=== PATIENT | female | born 1935 | race African-American/Black ===

== ENCOUNTER 2017-04-11 08:20 | Outpatient (CLI) | payer MEDICARE, OTHER ==
[2017-04-11 13:50] LABS: BASOPHILS % (AUTO) 0.4 %; EOSINOPHILS # (AUTO) 0.1 10^3/uL (0.0-0.7); EOSINOPHILS % (AUTO) 1.4 %; HGB - HEMOGLOBIN 12.8 g/dL (12.0-16.0); LYMPHOCYTES # (AUTO) 0.9 10^3/uL (1.5-3.5); LYMPHOCYTES % (AUTO) 13.4 %; MEAN CORPUSCULAR HEMOGLOBIN 32.3 pg (27.0-31.0); MEAN CORPUSCULAR HGB CONC 34.6 g/dL (32.0-36.0); MEAN CORPUSCULAR VOLUME 93.4 fL (81.0-99.0); MEAN PLATELET VOLUME 8.1 fL (7.9-10.8); MONOCYTES # (AUTO) 0.7 10^3/uL (0.0-1.0); MONOCYTES % (AUTO) 10.2 %; NEUTROPHILS # (AUTO) 5.2 10^3/uL (1.5-6.6); NEUTROPHILS % (AUTO) 74.6 %; RED BLOOD COUNT 3.96 10^6/uL (4.20-5.40); RED CELL DISTRIBUTION WIDTH 13.9 % (12.0-15.0); UNCORRECTED WHITE BLOOD COUNT 6.9 x10^3/uL; WHITE BLOOD COUNT 6.9 x10^3/uL (4.8-10.8)
[2017-04-11 14:09] LABS: HEMOGLOBIN A1C 0.58 g/dL
[2017-04-11 14:11] LABS: ALBUMIN/GLOBULIN RATIO 1.1 (1.0-2.2); BILIRUBIN,TOTAL 0.7 mg/dL (0.2-1.0); BUN - BLOOD UREA NITROGEN 15 mg/dL (6-20); CALCIUM 9.3 mg/dL (8.5-10.3); CARBON DIOXIDE - CO2 28 mmol/L (21-32); CHLORIDE 100 mmol/L (101-111); CHOL/HDL RATIO 3.1 (<4.4); CHOLESTEROL 175 mg/dL; CREATININE 0.9 mg/dL (0.4-1.0); GFR - MDRD 73 (>89); GLUCOSE 110 mg/dL (70-100); HDL CHOLESTEROL 56 mg/dL; LDL/HDL RATIO 1.9 (<4.4); POTASSIUM 2.9 mmol/L (3.5-5.0); SODIUM 138 mmol/L (135-145); TOTAL PROTEIN 6.5 g/dL (6.7-8.2); TRIGLYCERIDES 66 mg/dL; VLDL CHOLESTEROL 13 mg/dL
== END 2017-04-11 08:21 | disposition home or self-care (01) ==
LOC: LAB.WCP 08:20
PROVIDERS: ATTEND Family Medicine
DX: C54.1 Malignant neoplasm of endometrium (principal); E11.9 Type 2 diabetes mellitus without complications; I10 Essential (primary) hypertension; E78.9 Disorder of lipoprotein metabolism, unspecified
CPT/HCPCS: 36415; 80053; 80061; 82043; 83036; 84443; 85025

== ENCOUNTER 2017-04-15 09:51 | Outpatient (CLI) | payer MEDICARE, OTHER ==
--- NOTE | 2017-04-18 16:15 | Mammography Report ---
DIGITAL SCREENING MAMMOGRAM: 04/15/2017 CLINICAL INDICATION: An 82-year-old, for screening. COMPARISON: 03/2016, 01/2015, 11/2013, 11/2012, 09/2011, 09/2010, 08/2009. TECHNIQUE: Routine CC and MLO projections were obtained of the breasts. FINDINGS: The breasts again demonstrate scattered fibroglandular densities bilaterally. Coarse and p unctate, typically benign calcifications are present. No suspicious masses, clustered microcalcificat ions, or regions of architectural distortion are identified. IMPRESSION: BENIGN FINDINGS. RECOMMENDATION: ROUTINE ANNUAL SCREENING UNLESS OTHERWISE CLINICALLY INDICATED. BIRADS CATEGORY 2-BENIGN FINDINGS. STANDARD QUALIFYING STATEMENTS 1. This examination was reviewed with the aid of Computer-Aided Detection (CAD). 2. A negative or benign imaging report should not delay biopsy if clinically suspicious findings are present. Consider surgical consultation if warranted. More than 5% of cancers are not identified by i maging. 3. Dense breasts may obscure an underlying neoplasm. JOB #: [id number] EXT JOB #:[id number]
== END 2017-04-15 09:52 | disposition home or self-care (01) ==
LOC: DI.N 09:51
PROVIDERS: ATTEND Family Medicine
DX: Z12.31 Encounter for screening mammogram for malignant neoplasm of breast (principal)
CPT/HCPCS: 77067

== ENCOUNTER 2018-02-13 06:13 | Day surgery (SDC) | payer MEDICARE, OTHER ==
[2018-02-13] MEDS ORDERED: LACTATED RINGERS 1,000 ML IV ONE ×2 (06:31→08:42)
[2018-02-13 10:05] VITALS: BP 114/64
== END 2018-02-13 06:14 | disposition home or self-care (01) ==
LOC: SDS 06:13
PROVIDERS: ATTEND Surgery
PROC: 0DBK8ZZ Excision of Ascending Colon, Via Natural or Artificial Opening Endoscopic (ICD-10-PCS; principal; 2018-02-13 07:30)
DX: C18.2 Malignant neoplasm of ascending colon (principal); K57.30 Diverticulosis of large intestine without perforation or abscess without bleeding; I10 Essential (primary) hypertension; K21.9 Gastro-esophageal reflux disease without esophagitis; G47.30 Sleep apnea, unspecified; K64.8 Other hemorrhoids
CPT/HCPCS: 45385; J7120

== ENCOUNTER 2018-02-23 09:44 | Outpatient (CLI) | payer MEDICARE, OTHER ==
[2018-02-23] MEDS ORDERED: IOPAMIDOL-300 50 ML VIAL ONE (10:11)
[2018-02-23 10:35] LABS: CREATININE 1.1 mg/dL (0.4-1.0)
[2018-02-23] MEDS ORDERED: IOPAMIDOL-300 100 ML VIAL ONE (10:50)
[2018-02-23] MEDS ORDERED: IOPAMIDOL-300 100 ML VIAL IVP ONE (11:19)
[2018-02-23] MEDS ORDERED: IOPAMIDOL-300 50 ML VIAL PO ONE (11:19)
--- NOTE | 2018-02-23 15:00 | CT Report ---
Reason: ADENOCARCINOMA,ASCENDING COLON Procedure Date: 02/23/2018 Accession Number: [id number] / [id number] Procedure: CT - Abdomen/Pelvis W/ CPT Code: FULL RESULT: EXAM: CT ABDOMEN AND PELVIS EXAM DATE: 02/23/2018 11:18 AM. CLINICAL HISTORY: Adenocarcinoma, ascending colon. COMPARISONS: Abdomen/pelvis w/ 01/22/2016 6:41 PM. TECHNIQUE: Routine helical CT imaging was performed through the abdomen and pelvis. IV contrast: Isovue 300 100 mL. Enteric contrast: No. Reconstructions: Coronal and sagittal. In accordance with CT protocol optimization, one or more of the following dose reduction techniques were utilized for this exam: automated exposure control, adjustment of mA and/or KV based on patient size, or use of iterative reconstructive technique. FINDINGS: Lung Bases: Unremarkable. Liver: Normal. No masses. Gallbladder/Bile Ducts: The gallbladder is unremarkable. No bile duct dilatation. Spleen: Normal. Pancreas: Normal. Adrenal Glands: Normal. Kidneys: Stable 1.8 cm cyst of the upper pole of the left kidney. The kidneys are otherwise unremarkable. Peritoneal Cavity/Bowel: Normal. No free fluid, free air or adenopathy. No masses or acute inflammatory process. The appendix is well visualized and normal. Pelvic Organs: The uterus has been removed. No pelvic mass, lymphadenopathy or fluid collections. Vasculature: No aneurysms or other significant abnormality. Bones: Grade 2 L4 on L5 anterolisthesis with associated disk-related degenerative changes again seen. No significant bony abnormalities otherwise seen. Other: None. IMPRESSION: No evidence of metastatic disease. RADIA
== END 2018-02-23 09:45 | disposition home or self-care (01) ==
LOC: DI 09:44
PROVIDERS: ATTEND Surgery
DX: C18.2 Malignant neoplasm of ascending colon (principal)
CPT/HCPCS: 36415; 74177; 82565; Q9967

== ENCOUNTER 2018-03-02 14:28 | Outpatient (CLI) | payer MEDICARE, OTHER | END 2018-03-02 14:29 | disposition home or self-care (01) | LOC: LAB 14:28 | PROVIDERS: ATTEND Surgery | DX: C18.2 Malignant neoplasm of ascending colon (principal) | CPT/HCPCS: 36415; 82378 ==

== ENCOUNTER 2018-03-22 11:10 | Outpatient (CLI) | payer MEDICARE, OTHER ==
[2018-03-22 11:35] LABS: BASOPHILS # (AUTO) 0.1 10^3/uL (0.0-0.1); BASOPHILS % (AUTO) 2.4 %; EOSINOPHILS # (AUTO) 0.1 10^3/uL (0.0-0.7); EOSINOPHILS % (AUTO) 1.6 %; HGB - HEMOGLOBIN 13.4 g/dL (12.0-16.0); LYMPHOCYTES # (AUTO) 0.9 10^3/uL (1.5-3.5); LYMPHOCYTES % (AUTO) 21.1 %; MEAN CORPUSCULAR HGB CONC 35.1 g/dL (32.0-36.0); MEAN CORPUSCULAR VOLUME 93.9 fL (81.0-99.0); MEAN PLATELET VOLUME 7.3 fL (7.9-10.8); MONOCYTES # (AUTO) 0.4 10^3/uL (0.0-1.0); MONOCYTES % (AUTO) 9.1 %; NEUTROPHILS # (AUTO) 2.9 10^3/uL (1.5-6.6); NEUTROPHILS % (AUTO) 65.8 %; PLT - PLATELET COUNT 249 10^3/uL (130-450); RED BLOOD COUNT 4.05 10^6/uL (4.20-5.40); RED CELL DISTRIBUTION WIDTH 14.2 % (12.0-15.0); WHITE BLOOD COUNT 4.4 x10^3/uL (4.8-10.8)
[2018-03-22 11:39] LABS: CALCIUM 9.3 mg/dL (8.5-10.3); CREATININE 0.8 mg/dL (0.4-1.0)
== END 2018-03-22 11:11 | disposition home or self-care (01) ==
LOC: LAB 11:10
PROVIDERS: ATTEND Registered Nurse
DX: Z01.810 Encounter for preprocedural cardiovascular examination (principal); C18.2 Malignant neoplasm of ascending colon; E11.9 Type 2 diabetes mellitus without complications; I10 Essential (primary) hypertension; K21.9 Gastro-esophageal reflux disease without esophagitis
CPT/HCPCS: 36415; 80048; 85025; 86850; 86900; 86901; 93005

== ENCOUNTER 2018-03-24 06:10 | Inpatient (IN) | payer MEDICARE, OTHER ==
[2018-03-24] MEDS ORDERED: LACTATED RINGERS 1,000 ML IV ONE ×3 (07:10→10:14)
--- NOTE | 2018-03-24 07:14 | ANESTHESIA ---
Pre-Anesthesia VS, & Labs - Diagnosis right colon cancer - Procedure Right colon hemicolectomy Vital Signs: Temp Pulse Resp BP Pulse Ox 36.2 C L 86 16 144/88 H 99 03/24/18 06:51 03/24/18 06:51 03/24/18 06:51 03/24/18 06:51 03/24/18 06:51 Height 5 ft 3 in Weight (kg) 62.3 kg Body Mass Index 21.4 - NPO >8 hours - Is Patient ?: No - Lab Results Current Lab Results: Laboratory Tests 03/24/18 07:08: POC Whole Bld Glucose 138 H Home Medications and Allergies Home Medications: Ambulatory Orders Aspirin [Aspirin EC] 81 mg PO DAILY 03/22/18 Cholecalciferol (Vitamin D3) [Vitamin D3] 1,000 unit PO DAILY 03/22/18 Cyanocobalamin (Vitamin B-12) [Vitamin B-12] 2,500 mcg PO DAILY 03/22/18 Ibuprofen 800 mg PO Q8HR PRN 03/22/18 Mirtazapine 15 mg PO DAILY PM 03/22/18 Potassium Chloride 10 meq PO DAILY 03/22/18 raNITIdine [Zantac] 150 mg PO DAILY 12/04/15 Tolterodine [Detrol LA] 2 mg PO BID 01/22/16 Triamterene/Hydrochlorothiazid [Triamterene-Hctz 37.5-25 mg Cp] 1 tab PO DAILY 02/13/18 Aspirin [Aspirin EC] 81 mg PO DAILY 03/22/18 Cholecalciferol (Vitamin D3) [Vitamin D3] 1,000 unit PO DAILY 03/22/18 Cyanocobalamin (Vitamin B-12) [Vitamin B-12] 2,500 mcg PO DAILY 03/22/18 Ibuprofen 800 mg PO Q8HR PRN 03/22/18 Mirtazapine 15 mg PO DAILY PM 03/22/18 Potassium Chloride 10 meq PO DAILY 03/22/18 Allergies/Adverse Reactions: Allergies Allergy/AdvReac Type Severity Reaction Status Date / Time No Known Drug Allergies Allergy Verified 12/04/15 07:50 Anes History & Medical History - Anesthetic History Anesthesia Complications: reports: No previous complications Family history of Anesthesia Complications: Denies Family history of Malignant Hyperthermia: Denies - Medical History Cardiovascular: reports: Hypertension, High cholesterol Pulmonary: reports: Sleep apnea Gastrointestinal: reports: GERD, Colon polyps, Diverticulitis Urinary: reports: Other Musculoskeletal: reports: Osteoarthritis, Chronic back pain Endocrine/Autoimmune: reports: Type 2 diabetes Smoking Status: Never smoker - Surgical History General: Colonoscopy Gynecologic: Hysterectomy Exam General: Alert, Oriented x3 Dental: Dentures full Upper Mouth Opening: Greater than 4 Fingerbreadths Neck Mobility: Normal Mallampati classification: II Thyromental Distance: greater than 6 cm Respiratory: Lungs clear Cardiovascular: Regular rate, Normal S1, Normal S2 Extremities: Other (edema on left leg chronic since hysterectomy) Plan Anesthesia Type: General Consent for Procedure(s) Verified and Reviewed: Yes Code Status: Attempt Resuscitation ASA classification: 3-Severe systemic disease Is this case an emergency?: No
[2018-03-24] MEDS ORDERED: LIDOCAINE 1% 50 ML MDV ONE (07:21)
[2018-03-24] MEDS ORDERED: BUPIVACAINE 0.5%-EPI 1:200000 PF 30 ML VIAL ONE (07:21)
[2018-03-24] MEDS ORDERED: BUPIVACAINE 0.5% PF 30 ML VIAL ONE (08:15)
[2018-03-24] MEDS ORDERED: ROCURONIUM 50 MG/5 ML VIAL IVP ONE (08:40)
[2018-03-24] MEDS ORDERED: DEXAMETHASONE 4 MG/ML VIAL IVP ONE (08:40)
[2018-03-24] MEDS ORDERED: ONDANSETRON 4 MG/2 ML VIAL IVP ONE (08:40)
[2018-03-24] MEDS ORDERED: LIDOCAINE-MPF 2% 5 ML VIAL IM ONE (08:40)
[2018-03-24] MEDS ORDERED: NEOSTIGMINE 1 MG/1 ML 10 ML MDV IVP ONE (08:40)
[2018-03-24] MEDS ORDERED: ePHEDrine 50 MG/ML AMP IVP ONE (08:40)
[2018-03-24] MEDS ORDERED: PROPOFOL 200 MG/20 ML VIAL IVP ONE (08:40)
[2018-03-24] MEDS ORDERED: fentaNYL 250 MCG/5 ML VIAL IVP ONE (08:40)
[2018-03-24] MEDS ORDERED: GLYCOPYRROLATE 1 MG/5 ML VIAL IVP ONE (08:40)
[2018-03-24] MEDS ORDERED: oxyCODONE 5 MG TABLET PO PRN (10:16)
[2018-03-24] MEDS ORDERED: MORPHINE 2 MG/ML CARPUJECT IVP PRN (10:16)
[2018-03-24] MEDS ORDERED: SODIUM CHLORIDE FLUSH 0.9% 10 ML SYRINGE IVP PRN (10:16)
[2018-03-24] MEDS: fentaNYL 100 MCG/2 ML VIAL ONE ×2 (10:35→10:42)
--- NOTE | 2018-03-24 10:54 | OPERATIVE REPORT ---
Operative Report - General Admit Date: 03/24/18 Procedure Date: 03/24/18 Planned Procedure: Laparoscopic RIGHT hemicolectomy Pre-Op Diagnosis: Ascending colon cancer Procedure Performed: Laparoscopic RIGHT hemicolectomy Post Op Diagnosis: Same - Procedure Note Primary Surgeon: Yonatan Hernandez MD Secondary Surgeon: Alfred Michaels MD Anesthesia Provider: Gold Miller CRNA Anesthesia Technique: General ET tube, Local (30 mL of half percent Marcaine) IV Fluids (mL): 1,300 Estimated Blood Loss (mL): 10 Complications: None. - Other Other Information/Narrative: OPERATIVE DESCRIPTION/REPORT: After verbal and written informed consent was obtained detailing the risks of infection, bleeding with all of its risks including transfusion, and the patient was brought to the operative suite and placed initially in the supine position on the operating room table and then once anesthetized in stirrups taking care to pad all extremities. Monitoring devices were applied along with TEDs and pneumatic compressive stockings. Care was taken to avoid pressure points. Prophylactic antibiotics were given. An adequate level of general endotracheal anesthesia was established by Gold Miller CRNA. The abdomen was then prepped with ChloraPrep and draped in a sterile fashion. A "time in" then confirmed that the patient was identified with 3 identifiers (name, date and medical record number), the history and physical was in the chart, the signed consent confirming the procedure was in the chart, the patient was in the correct position, the aforementioned prophylactic measures were in place or given, we had the correct personnel and equipment to complete the procedure and that anesthesia, surgery and nursing were given an opportunity to express any c oncerns. A 4 cm transverse incision was made just supraumbilically starting at the umbilicus and going to the patient's right. Dissection down to the anterior fascia was completed using a scalpel as well as Bovie electrocautery for hemostasis. The anterior fascia was incised using Bovie electrocautery and the rectus muscles were retracted laterally. The posterior fascia and the peritoneum were incised getting entry into the abdomen without incident. The incision was lengthened to the length of our skin incision. Through this opening was placed a SILS port and 3 ports were placed into the SILS gel. The abdomen was then insufflated using carbon dioxide to a steady-state pressure of 50 mmHg with carbon dioxide. The abdomen was then examined and no other overt pathology was noted. In order to complete the operation a 5 mm port was placed 2 fingerbreadths above and 2 fingerbreadths medial to the left anterior iliac spine. This is placed under direct vision without incident. The patient was then place in a rather steep Trendelenberg position with the left lateral decubitus tilt and a medial to lateral approach was employed. The interface of the mesentary and the retroperitoneum was opened using serial application of Ligasure. In so doing and with some traction and countertraction the ileocolic and right colic arteries and their corresponding veins came into view, as well as relatively avascular mesenteric windows, above and below the vessels. Both arteries were circumferentially isolated. The right ureter was seen and carefully preserved. These windows were used for retraction lifting the mesentary to the anterior abdominal wall so as to minimize trauma to the tissues. With the ileocolic artery and right colonic artery skeletonized and the right ureter clearly and safely away from the dissection the arteries and veins were ligated using Ligasure as close to their origin as possible to ensure that an adequate lymph node yield was achieved. The appendix as well as the terminal ileum were then freed from their lateral attachments using serial application of LigaSure. Dissection from inferior to superior along the white line of Toldt then allowed the colon to be freely mobilized all the way up to the hepatic flexure. The hepatic flexure was taken in a similar manner with using serial application of the LigaSure. At all times, care was taken to ensure the duodenum was visualized and unharmed. In this manner the right colon could be brought to the midline easily. Some minimal attachements of the omentum to the distal right colon and proximal transverse colon were taken using serial application of the Ligasure. With this final piece of mobilization I was convinced that the right colon could come medially and the transverese colon inferiorly to allow for resection and anastamosis at the skin level. Prestige grasper placed through one of the SILS ports. The insufflation was stopped and the SILS port removed leaving the sleeve in place. The Prestige grasper was then used to bring the right colon terminal ileum and proximal transverse colon up into the wound. Two 3-0 Vicryl sutures were used to align the ileum to the mid transverse colon using the antimesenteric border of the ileum and one of the tenia. Bowel clamps were placed on the terminal ileum as well as the proximal transverse colon to minimize spillage. A small colotomy and enterotomy was then made using Bovie electrocautery just above the distal ileal suture and proximal to the mid colonic suture to allow placement of a ANDERSON 75 stapler. The stapler was placed through these openings and fired thus creating the colocolostomy. The ANDERSON stapler was reloaded and the fired across the ileum and colon thus resecting the terminal ileum, appendix, right colon and proximal hepatic flexure and completing the anastomosis. The specimen was sent off the operative field. It did not require orientation. Digital manipulation showed that the anastomosis was widely patent. This staple line was then oversewn using 3-0 Vicryl sutures in a Lembert fashion. The anastamosis was visually checked fort a leak and there was none. There was no bleeding noted. The anastomosis was then dropped into the abdomen and the abdomen was copiously irrigated using 1 L warm sterile saline. The effluent was clear. The posterior fascia and peritoneum at the umbilicus were approximated using a 0 Vicryl suture in a running fashion. The anterior fascia was approximated using 0 PDS in a running fashion. The port site as well as umbilical incision were injected with half percent Marcaine at a fascial and skin level with 1/2% Marcaine under direct vision. Meticulous hemostasis was obtained using Bovie electrocautery. The skin incisions were approximated with a running 4-0 Monocryl. Dermabond was applied above this. At this point a time out was performed that confirmed that all the counts were correct, the procedure that was performed, the blood loss, the IV fluids administered, and the patients condition. The prep was washed off and Benzoin and steristrips were applied. Having tolerated the procedure well, the patient was subsequently extubated and taken to recovery room in good and stable condition. [employer] disclaimer: This document was created in part using voice recognition technology. Because of the inherent limitations of the system ([employer]s [employer] user manual states that the licensee understands that speech recognition is a statistical process and that recognition errors are inherent in the process), occasional same sounding word substitutions and grammatical errors do occur and persist despite proofreading. Please read this document for context.
[2018-03-24] MEDS: LACTATED RINGERS 1,000 ML IV SCH (11:19)
[2018-03-24] MEDS: ACETAMINOPHEN 1,000 MG/100 ML 100 ML IV SCH ×3 (12:02→23:36)
[2018-03-24] MEDS ORDERED: PIPERACILLIN/TAZOBACTAM 3.375 GM in SODIUM CHLORIDE 0.9% MINIBAG 100 ML IV ONE (14:00)
[2018-03-24] MEDS ORDERED: SODIUM CHLORIDE 0.9% 1,000 ML IV ONE (16:00)
[2018-03-24] MEDS: SODIUM CHLORIDE FLUSH 0.9% 10 ML SYRINGE IVP SCH (17:04)
[2018-03-25] MEDS: SODIUM CHLORIDE FLUSH 0.9% 10 ML SYRINGE IVP SCH ×3 (00:29→16:05)
[2018-03-25] MEDS: LACTATED RINGERS 1,000 ML IV SCH ×2 (04:58→23:47)
[2018-03-25] MEDS: ACETAMINOPHEN 1,000 MG/100 ML 100 ML IV SCH ×3 (06:12→19:04)
[2018-03-25] MEDS: PANTOPRAZOLE 40 MG TABLET PO SCH (06:13)
--- NOTE | 2018-03-25 14:15 | PROVIDER PROGRESS NOTE ---
Subjective - General Admit Date: 03/24/18 Procedure Date: 03/24/18 Post Op Days: 1 Procedure Performed: Laparoscopic RIGHT hemicolectomy - Review of Systems Wound/Incisions: positive: Healing well General: positive: No symptoms HEENT: positive: No symptoms Pulmonary: positive: No symptoms Cardiovascular: positive: No symptoms Gastrointestinal: positive: Abdominal pain (Slight with eating breakfast.) Genitourinary: positive: No symptoms Musculoskeletal: positive: No symptoms Skin: positive: No symptoms Psychiatric: positive: No symptoms Objective - Patient Data Reviewed Vital Signs: Yes Vital Signs: Vital Signs x48h Temp Pulse Pulse Resp BP Pulse Ox 03/25/18 09:46 36.8 C 61 18 100 03/25/18 08:27 36.8 C 57 L 18 110/56 L 100 Weight: Weight 03/23/18 03/24/18 03/25/18 23:59 23:59 23:59 Weight (kg) 65 kg Intake & Output: Intake and Output Totals x24h 03/23/18 03/24/18 03/25/18 23:59 23:59 23:59 Intake Total 3757.500 1901.667 Output Total 1585 1300 Balance 2172.500 601.667 - Lab Results Other Lab Results: Lab Results x24hrs 03/25/18 03/24/18 03/24/18 Range/Units 06:12 23:37 16:26 POC Whole Bld Glucose 93 134 H 109 H (70 - 100) mg/dL - Current Medications Current Medications: Current Medications Generic Name Dose Route Start Last Admin Trade Name Freq PRN Reason Stop Dose Admin Lactated Ringer's 1,000 mls @ 50 mls/hr 03/24/18 11:00 03/25/18 12:17 Lr IV 50 mls/hr .Q20H RIMA Infusion Acetaminophen 100 mls @ 400 mls/hr 03/24/18 12:00 03/25/18 12:17 Ofirmev IV Infused Q6H RIMA Infusion Morphine Sulfate 2 mg 03/24/18 10:16 03/24/18 13:51 Morphine (Carpuject) IVP 2 mg Q2HR PRN Administration PAIN Pantoprazole Sodium 40 mg 03/25/18 07:00 03/25/18 06:13 Protonix PO 40 mg QDAC RIMA Administration Sodium Chloride 10 ml 03/24/18 17:00 11/03/18 07:27 Normal Saline Flush 0.9% IVP Not Given 0100,0900,1700 RIMA - Physical Exam Wound/Incisions: positive: Healing well General Appearance: positive: No acute distress (Sleeping when I went into room.) Eyes Bilateral: positive: No lid inflammation, Conjunctivae nml, No scleral icterus ENT: positive: No signs of dehydration Neck: positive: Trachea midline Cardiovascular: positive: Regular rate & rhythm Abdomen: positive: Tenderness (Minimal at wound.), Abnml bowel sounds (Slightly decreased but present.) Skin: positive: Color nml Extremities: positive: Non-tender, Nml appearance Neurologic/Psychiatric: positive: Oriented x3 ABX Reporting Has patient been on IV antibiotics over the past 48 hours?: Yes Impression/Plan - Problem List Problem List: D1 s/p SILS (laparoscopic) RIGHT hemicolectomy with one additional port for colon cancer Following ERAS protocol. Doing well. Casiano out. Pathology pending. Excellent pain control with acetaminophen only. Awaiting bowel function. Expect full recovery. Expect discharge prior to 96 hours after surgery.
[2018-03-25 19:09] LABS: BASOPHILS # (AUTO) 0.1 10^3/uL (0.0-0.1); BASOPHILS % (AUTO) 1.8 %; EOSINOPHILS # (AUTO) 0.1 10^3/uL (0.0-0.7); EOSINOPHILS % (AUTO) 1.5 %; HGB - HEMOGLOBIN 11.4 g/dL (12.0-16.0); LYMPHOCYTES # (AUTO) 0.6 10^3/uL (1.5-3.5); LYMPHOCYTES % (AUTO) 9.4 %; MEAN CORPUSCULAR HEMOGLOBIN 33.8 pg (27.0-31.0); MEAN CORPUSCULAR HGB CONC 35.6 g/dL (32.0-36.0); MEAN CORPUSCULAR VOLUME 94.9 fL (81.0-99.0); MEAN PLATELET VOLUME 7.5 fL (7.9-10.8); MONOCYTES # (AUTO) 0.5 10^3/uL (0.0-1.0); MONOCYTES % (AUTO) 7.4 %; NEUTROPHILS % (AUTO) 79.9 %; PLT - PLATELET COUNT 208 10^3/uL (130-450); RED BLOOD COUNT 3.38 10^6/uL (4.20-5.40); RED CELL DISTRIBUTION WIDTH 14.5 % (12.0-15.0); WHITE BLOOD COUNT 6.2 x10^3/uL (4.8-10.8)
[2018-03-25 19:32] LABS: ALBUMIN/GLOBULIN RATIO 1.2 (1.0-2.2); BILIRUBIN,TOTAL 0.9 mg/dL (0.2-1.0); CALCIUM 8.5 mg/dL (8.5-10.3); CREATININE 0.7 mg/dL (0.4-1.0); TOTAL PROTEIN 5.6 g/dL (6.7-8.2)
[2018-03-25] MEDS: POTASSIUM CHLOR 10 MEQ/100 ML 10 MEQ/100 ML BAG IV SCH ×3 (20:53→23:44)
[2018-03-26] MEDS: ACETAMINOPHEN 1,000 MG/100 ML 100 ML IV SCH ×4 (00:17→18:52)
[2018-03-26] MEDS: SODIUM CHLORIDE FLUSH 0.9% 10 ML SYRINGE IVP SCH ×3 (00:21→15:49)
[2018-03-26] MEDS: POTASSIUM CHLOR 10 MEQ/100 ML 10 MEQ/100 ML BAG IV SCH ×5 (01:16→06:20)
[2018-03-26] MEDS: PANTOPRAZOLE 40 MG TABLET PO SCH (05:56)
[2018-03-26 05:57] LABS: BASOPHILS % (AUTO) 0.9 %; EOSINOPHILS # (AUTO) 0.2 10^3/uL (0.0-0.7); EOSINOPHILS % (AUTO) 3.5 %; HGB - HEMOGLOBIN 10.4 g/dL (12.0-16.0); LYMPHOCYTES # (AUTO) 0.8 10^3/uL (1.5-3.5); LYMPHOCYTES % (AUTO) 17.5 %; MEAN CORPUSCULAR HEMOGLOBIN 32.9 pg (27.0-31.0); MEAN CORPUSCULAR HGB CONC 35.2 g/dL (32.0-36.0); MEAN CORPUSCULAR VOLUME 93.5 fL (81.0-99.0); MEAN PLATELET VOLUME 7.5 fL (7.9-10.8); MONOCYTES # (AUTO) 0.5 10^3/uL (0.0-1.0); MONOCYTES % (AUTO) 10.7 %; NEUTROPHILS % (AUTO) 67.4 %; PLT - PLATELET COUNT 187 10^3/uL (130-450); RED BLOOD COUNT 3.16 10^6/uL (4.20-5.40); RED CELL DISTRIBUTION WIDTH 14.4 % (12.0-15.0); WHITE BLOOD COUNT 4.4 x10^3/uL (4.8-10.8)
[2018-03-26 06:06] LABS: ALBUMIN 2.6 g/dL (3.2-5.5); ALBUMIN/GLOBULIN RATIO 1.1 (1.0-2.2); ALKALINE PHOSPHATASE 40 IU/L (42-121); ALT ALANINE AMINOTRANSFERASE 11 IU/L (10-60); AST ASPARTATE AMINOTRANSFERASE 21 IU/L (10-42); BILIRUBIN,TOTAL 0.7 mg/dL (0.2-1.0); BUN - BLOOD UREA NITROGEN 6 mg/dL (6-20); CALCIUM 8.1 mg/dL (8.5-10.3); CARBON DIOXIDE - CO2 28 mmol/L (21-32); CHLORIDE 107 mmol/L (101-111); CREATININE 0.6 mg/dL (0.4-1.0); GFR - MDRD 116 (>89); GLUCOSE 93 mg/dL (70-100); MAGNESIUM 1.5 mg/dL (1.7-2.8); PHOSPHORUS 2.1 mg/dL (2.5-4.6); SODIUM 140 mmol/L (135-145); TOTAL PROTEIN 4.9 g/dL (6.7-8.2)
[2018-03-26 06:09] LABS: VBG PH 7.448 (7.31-7.41)
[2018-03-26] MEDS: LACTATED RINGERS 1,000 ML IV SCH (18:52)
--- NOTE | 2018-03-26 19:23 | PROVIDER PROGRESS NOTE ---
Subjective - General Admit Date: 03/24/18 Procedure Date: 03/24/18 Post Op Days: 2 Procedure Performed: Laparoscopic RIGHT hemicolectomy - Review of Systems Wound/Incisions: positive: Healing well General: positive: No symptoms HEENT: positive: No symptoms Pulmonary: positive: No symptoms Cardiovascular: positive: No symptoms Gastrointestinal: positive: Abdominal pain (Slight with eating breakfast.) Genitourinary: positive: No symptoms Musculoskeletal: positive: No symptoms Skin: positive: No symptoms Psychiatric: positive: No symptoms Objective - Patient Data Reviewed Vital Signs: Yes Vital Signs: Vital Signs x48h Temp Pulse Resp BP Pulse Ox 03/26/18 15:47 36.9 C 63 16 130/56 L 100 Weight: Weight 03/24/18 03/25/18 03/26/18 23:59 23:59 22:59 Weight (kg) 65 kg Intake & Output: Intake and Output Totals x24h 03/24/18 03/25/18 03/26/18 23:59 23:59 22:59 Intake Total 3757.500 3716.667 2660 Output Total 1585 2050 1525 Balance 2172.500 3303.720 3032 - Lab Results Lab Results: 03/26/18 05:03 03/26/18 05:30 Other Lab Results: Lab Results x24hrs 03/26/18 03/26/18 03/26/18 Range/Units 11:30 05:30 05:30 WBC (4.8-10.8) x10^3/uL RBC (4.20-5.40) 10^6/uL Hgb (12.0-16.0) g/dL Hct (37.0-47.0) % MCV (81.0-99.0) fL MCH (27.0-31.0) pg MCHC (32.0-36.0) g/dL RDW (12.0-15.0) % Plt Count (130-450) 10^3/uL MPV (7.9-10.8) fL Neut # (Auto) (1.5-6.6) 10^3/uL Lymph # (Auto) (1.5-3.5) 10^3/uL [place] # (Auto) (0.0-1.0) 10^3/uL Eos # (Auto) (0.0-0.7) 10^3/uL Baso # (Auto) (0.0-0.1) 10^3/uL Absolute Nucleated RBC x10^3/uL Nucleated RBC % /100WBC VBG pH 7.448 H (7.31-7.41) Ionized Calcium 1.11 L YES (1.15-1.33) mmol/L Sodium 140 (135-145) mmol/L Potassium 3.3 L (3.5-5.0) mmol/L Chloride 107 (101-111) mmol/L Carbon Dioxide 28 (21-32) mmol/L Anion Gap 5.0 L (6-13) BUN 6 (6-20) mg/dL Creatinine 0.6 (0.4-1.0) mg/dL Estimated GFR (MDRD) 116 (>89) Glucose 93 (70-100) mg/dL POC Whole Bld Glucose 112 H (70 - 100) mg/dL Calcium 8.1 L (8.5-10.3) mg/dL Phosphorus 2.1 L (2.5-4.6) mg/dL Magnesium 1.5 L (1.7-2.8) mg/dL Total Bilirubin 0.7 (0.2-1.0) mg/dL AST 21 (10-42) IU/L ALT 11 (10-60) IU/L Alkaline Phosphatase 40 L (42-121) IU/L Total Protein 4.9 L (6.7-8.2) g/dL Albumin 2.6 L (3.2-5.5) g/dL Globulin 2.3 (2.1-4.2) g/dL Albumin/Globulin Ratio 1.1 (1.0-2.2) 03/26/18 03/25/18 Range/Units 05:03 23:32 WBC 4.4 L (4.8-10.8) x10^3/uL RBC 3.16 L (4.20-5.40) 10^6/uL Hgb 10.4 L (12.0-16.0) g/dL Hct 29.6 L (37.0-47.0) % MCV 93.5 (81.0-99.0) fL MCH 32.9 H (27.0-31.0) pg MCHC 35.2 (32.0-36.0) g/dL RDW 14.4 (12.0-15.0) % Plt Count 187 (130-450) 10^3/uL MPV 7.5 L (7.9-10.8) fL Neut # (Auto) 3.0 (1.5-6.6) 10^3/uL Lymph # (Auto) 0.8 L (1.5-3.5) 10^3/uL [place] # (Auto) 0.5 (0.0-1.0) 10^3/uL Eos # (Auto) 0.2 (0.0-0.7) 10^3/uL Baso # (Auto) 0.0 (0.0-0.1) 10^3/uL Absolute Nucleated RBC 0.00 x10^3/uL Nucleated RBC % 0.1 /100WBC VBG pH (7.31-7.41) Ionized Calcium (1.15-1.33) mmol/L Sodium (135-145) mmol/L Potassium (3.5-5.0) mmol/L Chloride (101-111) mmol/L Carbon Dioxide (21-32) mmol/L Anion Gap (6-13) BUN (6-20) mg/dL Creatinine (0.4-1.0) mg/dL Estimated GFR (MDRD) (>89) Glucose (70-100) mg/dL POC Whole Bld Glucose 83 (70 - 100) mg/dL Calcium (8.5-10.3) mg/dL Phosphorus (2.5-4.6) mg/dL Magnesium (1.7-2.8) mg/dL Total Bilirubin (0.2-1.0) mg/dL AST (10-42) IU/L ALT (10-60) IU/L Alkaline Phosphatase (42-121) IU/L Total Protein (6.7-8.2) g/dL Albumin (3.2-5.5) g/dL Globulin (2.1-4.2) g/dL Albumin/Globulin Ratio (1.0-2.2) - Current Medications Current Medications: Current Medications Generic Name Dose Route Start Last Admin Trade Name Freq PRN Reason Stop Dose Admin Lactated Ringer's 1,000 mls @ 50 mls/hr 03/24/18 11:00 03/26/18 18:52 Lr IV 50 mls/hr .Q20H RIMA Administration Acetaminophen 100 mls @ 400 mls/hr 03/24/18 12:00 03/26/18 18:52 Ofirmev IV 400 mls/hr Q6H RIMA Administration Morphine Sulfate 2 mg 03/24/18 10:16 03/24/18 13:51 Morphine (Carpuject) IVP 2 mg Q2HR PRN Administration PAIN Oxycodone HCl 5 mg 03/24/18 10:16 03/25/18 16:00 Roxicodone PO 5 mg Q4HR PRN Administration PAIN Pantoprazole Sodium 40 mg 03/25/18 07:00 03/26/18 05:56 Protonix PO 40 mg QDAC RIMA Administration Sodium Chloride 10 ml 03/24/18 17:00 03/26/18 15:49 Normal Saline Flush 0.9% IVP Not Given 0100,0900,1700 RIMA - Physical Exam Wound/Incisions: positive: Healing well General Appearance: positive: No acute distress (Concerned as she passed a bloody bowel movement today.) Eyes Bilateral: positive: No lid inflammation, Conjunctivae nml, No scleral icterus ENT: positive: No signs of dehydration Neck: positive: Trachea midline Respiratory: positive: Chest non-tender, No respiratory distress, Breath sounds nml Cardiovascular: positive: Regular rate & rhythm Abdomen: positive: Non-tender, Nml bowel sounds, No distention Skin: positive: Color nml Extremities: positive: Non-tender Neurologic/Psychiatric: positive: Oriented x3 Impression/Plan - Problem List Problem List: D2 s/p SILS laparoscopic RIGHT hemicolectomy with an additional port Doing exceptionally well on the ERAS protocol. Passing stool. Pain well controlled. Anticipate discharge within the next 24 hours. Pathology still pending.
[2018-03-27] MEDS: ACETAMINOPHEN 1,000 MG/100 ML 100 ML IV SCH ×3 (00:33→13:35)
[2018-03-27] MEDS: SODIUM CHLORIDE FLUSH 0.9% 10 ML SYRINGE IVP SCH ×2 (00:36→09:03)
[2018-03-27 05:21] LABS: BASOPHILS % (AUTO) 0.4 %; EOSINOPHILS # (AUTO) 0.2 10^3/uL (0.0-0.7); EOSINOPHILS % (AUTO) 4.4 %; HGB - HEMOGLOBIN 10.3 g/dL (12.0-16.0); LYMPHOCYTES # (AUTO) 0.8 10^3/uL (1.5-3.5); LYMPHOCYTES % (AUTO) 18.3 %; MEAN CORPUSCULAR HEMOGLOBIN 32.7 pg (27.0-31.0); MEAN CORPUSCULAR HGB CONC 34.5 g/dL (32.0-36.0); MEAN CORPUSCULAR VOLUME 94.7 fL (81.0-99.0); MEAN PLATELET VOLUME 7.5 fL (7.9-10.8); MONOCYTES # (AUTO) 0.4 10^3/uL (0.0-1.0); MONOCYTES % (AUTO) 10.5 %; NEUTROPHILS # (AUTO) 2.8 10^3/uL (1.5-6.6); NEUTROPHILS % (AUTO) 66.4 %; PLT - PLATELET COUNT 189 10^3/uL (130-450); RED BLOOD COUNT 3.14 10^6/uL (4.20-5.40); RED CELL DISTRIBUTION WIDTH 14.3 % (12.0-15.0); WHITE BLOOD COUNT 4.2 x10^3/uL (4.8-10.8)
[2018-03-27 05:33] LABS: ALBUMIN 2.6 g/dL (3.2-5.5); ALBUMIN/GLOBULIN RATIO 1.1 (1.0-2.2); ALKALINE PHOSPHATASE 43 IU/L (42-121); ALT ALANINE AMINOTRANSFERASE 12 IU/L (10-60); AST ASPARTATE AMINOTRANSFERASE 20 IU/L (10-42); BILIRUBIN,TOTAL 0.7 mg/dL (0.2-1.0); BUN - BLOOD UREA NITROGEN 7 mg/dL (6-20); CALCIUM 8.5 mg/dL (8.5-10.3); CARBON DIOXIDE - CO2 27 mmol/L (21-32); CHLORIDE 108 mmol/L (101-111); CREATININE 0.6 mg/dL (0.4-1.0); GFR - MDRD 116 (>89); GLUCOSE 98 mg/dL (70-100); MAGNESIUM 1.5 mg/dL (1.7-2.8); PHOSPHORUS 2.6 mg/dL (2.5-4.6); SODIUM 141 mmol/L (135-145); TOTAL PROTEIN 4.9 g/dL (6.7-8.2)
[2018-03-27] MEDS: PANTOPRAZOLE 40 MG TABLET PO SCH (05:54)
[2018-03-27 07:54] VITALS: BP 136/60
--- NOTE | 2018-03-27 12:20 | DISCHARGE SUMMARY ---
"Discharge Summary Admit Date: 03/24/18 Discharge Date: 03/27/18 Discharging Provider: Yonatan Hernandez MD Code Status: Attempt Resuscitation Condition at Discharge: Good Discharge Disposition: 01 Home, Self Care - DIAGNOSES Admission Diagnoses: RIGHT colon cancer Discharge Diagnoses with Status of Each Condition: RIGHT colon cancer removed with laparoscopic RIGHT hemicolectomy on March 24, 2018 - HPI History of Present Illness: 83 year old female with RIGHT colon cancer found on colonoscopy brought in for surgery on 03-24-18. Laparoscopic RIGHT hemicolectomy performed - patient tolerated well. - CONSULTS | PROCEDURES Consultations: None. Procedures: Laparoscopic RIGHT hemicolectomy 03-24-[address] Hernandez - HOSPITAL COURSE Hospital Course: Uncomplicated. - ALLERGIES Allergies/Adverse Reactions: Allergies Allergy/AdvReac Type Severity Reaction Status Date / Time No Known Drug Allergies Allergy Verified 12/04/15 07:50 - MEDICATIONS Home Medications: Ambulatory Orders Medication Instructions Recorded Confirmed raNITIdine [Zantac] 150 mg PO DAILY 12/04/15 03/24/18 Tolterodine [Detrol LA] 2 mg PO BID 01/22/16 03/24/18 Triamterene/Hydrochlorothiazid 1 tab PO DAILY 02/13/18 03/24/18 [Triamterene-Hctz 37.5-25 mg Cp] Aspirin [Aspirin EC] 81 mg PO DAILY 03/22/18 03/24/18 Cholecalciferol (Vitamin D3) 1,000 unit PO DAILY 03/22/18 03/24/18 [Vitamin D3] Cyanocobalamin (Vitamin B-12) 2,500 mcg PO DAILY 03/22/18 03/24/18 [Vitamin B-12] Ibuprofen 800 mg PO Q8HR PRN 03/22/18 03/24/18 Mirtazapine 15 mg PO DAILY PM 03/22/18 03/24/18 Potassium Chloride 10 meq PO DAILY 03/22/18 03/24/18 - PHYSICAL EXAM AT DISCHARGE General Appearance: positive: No acute distress Eyes Bilateral: positive: No lid inflammation, Conjunctivae nml, No scleral icterus ENT: positive: No signs of dehydration Neck: positive: Trachea midline Respiratory: positive: Chest non-tender, No respiratory distress, Breath sounds nml Cardiovascular: positive: Regular rate & rhythm Abdomen: positive: Non-tender, Nml bowel sounds, No distention Skin: positive: Color nml Extremities: positive: Non-tender, Full ROM, Nml appearance Neurologic/Psychiatric: positive: Oriented x3 - LABS Result Diagrams: 03/27/18 05:00 03/27/18 05:00 - FOLLOW UP Follow Up: Yonatan Hernandez in 7-10 days - TIME SPENT Time Spent in Discharge (Minutes): 45"
--- NOTE | 2018-03-27 12:24 | Discharge Plan ---
Discharge Plan Disposition: 01 Home, Self Care Condition: Good Prescriptions: oxyCODONE [Roxicodone] 5 mg PO Q4HR PRN #20 tablet PRN Reason: Pain Diet: Regular Activity Restrictions: No Restrictions Shower Restrictions: No Driving Restrictions: Yes (Until cleared by me.) Weight Bearing: Full Weight Additional Instructions or Follow Up instructions: Call with any questions or concerns. No Smoking: If you smoke, Please STOP! Call for help. Follow-up with: Jack Westfall MD [Primary Care Provider] - Yonatan Hernandez MD [Provider Admit Priv/Credential] -
== END 2018-03-27 14:29 | disposition home or self-care (01) | DRG 330 ==
LOC: MS2 06:10
PROVIDERS: ADMIT Surgery; ATTEND Surgery
PROC: 0DTK4ZZ Resection of Ascending Colon, Percutaneous Endoscopic Approach (ICD-10-PCS; principal; 2018-03-24 07:30)
DX: C18.2 Malignant neoplasm of ascending colon (principal); C77.2 Secondary and unspecified malignant neoplasm of intra-abdominal lymph nodes; I10 Essential (primary) hypertension; E11.9 Type 2 diabetes mellitus without complications; G47.30 Sleep apnea, unspecified; E78.5 Hyperlipidemia, unspecified; K21.9 Gastro-esophageal reflux disease without esophagitis; K57.90 Diverticulosis of intestine, part unspecified, without perforation or abscess without bleeding; G47.00 Insomnia, unspecified; G89.29 Other chronic pain; M16.0 Bilateral primary osteoarthritis of hip; M43.10 Spondylolisthesis, site unspecified; Z79.82 Long term (current) use of aspirin; Z86.010 Personal history of colon polyps; Z85.42 Personal history of malignant neoplasm of other parts of uterus; Z90.79 Acquired absence of other genital organ(s); Z92.3 Personal history of irradiation
CPT/HCPCS: 36415; 80053; 82330; 83735; 84100; 85025

== ENCOUNTER 2018-05-09 05:54 | Day surgery (SDC) | payer MEDICARE, OTHER ==
[2018-05-09] MEDS ORDERED: ceFAZolin 2 GM/50 ML 2 GM/50 ML BAG IV ONE (06:24)
[2018-05-09] MEDS ORDERED: LACTATED RINGERS 1,000 ML IV ONE (06:27)
--- NOTE | 2018-05-09 07:24 | ANESTHESIA ---
Addendum entered and electronically signed by Mervat Stevenson CRNA 05/09/18 07:41: lungs clear, HR regular S1, S2, no murmur Original Note: Pre-Anesthesia VS, & Labs - Lab Results Lab results reviewed: Yes <Marvin Miller - Last Filed: 05/09/18 07:22> - NPO >8 hours - Is Patient ?: No <Mervat Stevenson - Last Filed: 05/09/18 07:39> - Diagnosis Adenocarcinoma of ascending carcinoma, diabetes (Marvin Miller) Adenocarcinoma of ascending carcinoma, diabetes (Mervat Stevenson) - Procedure Portacath (Marvin Miller) Portacath (Mervat Stevenson) Vital Signs: Temp Pulse Resp BP Pulse Ox 37.2 C 65 16 135/67 H 97 05/09/18 06:40 05/09/18 06:40 05/09/18 06:40 05/09/18 06:40 05/09/18 06:40 Height 5 ft 4 in Weight (kg) 63 kg Body Mass Index 23.8 Home Medications and Allergies <Marvin Miller - Last Filed: 05/09/18 07:22> <Mervat Stevenson - Last Filed: 05/09/18 07:39> raNITIdine [Zantac] 150 mg PO DAILY 12/04/15 Tolterodine [Detrol LA] 2 mg PO BID 01/22/16 Triamterene/Hydrochlorothiazid [Triamterene-Hctz 37.5-25 mg Cp] 1 tab PO DAILY 02/13/18 Aspirin [Aspirin EC] 81 mg PO DAILY 03/22/18 Cholecalciferol (Vitamin D3) [Vitamin D3] 1,000 unit PO DAILY 03/22/18 Cyanocobalamin (Vitamin B-12) [Vitamin B-12] 2,500 mcg PO DAILY 03/22/18 Ibuprofen 800 mg PO Q8HR PRN 03/22/18 Mirtazapine 15 mg PO DAILY PM 03/22/18 Potassium Chloride 10 meq PO DAILY 03/22/18 Dexamethasone 2 tab PO QDAC 05/05/18 LORazepam [Lorazepam] 1 tab PO Q6H PRN 05/05/18 Lidocaine/Prilocain 2.5% Cream [Emla 2.5% Cream] 1 inch TOP PRN PRN 05/05/18 Ondansetron [Ondansetron Odt] 1 tab PO Q4H PRN 05/05/18 Prochlorperazine Maleate [Compazine] 1 tab PO Q6H PRN 05/05/18 Allergies/Adverse Reactions: Allergies Allergy/AdvReac Type Severity Reaction Status Date / Time No Known Drug Allergies Allergy Verified 12/04/15 07:50 Anes History & Medical History - Medical History Cardiovascular: reports: Hypertension Pulmonary: reports: None Gastrointestinal: reports: GERD, Colon polyps, Diverticulitis Urinary: reports: Other Neuro: reports: None Musculoskeletal: reports: Osteoarthritis, Chronic back pain, Other Endocrine/Autoimmune: reports: None Blood Disorders: reports: None Skin: reports: None Smoking Status: Never smoker - Surgical History General: Colonoscopy Gynecologic: Hysterectomy <Marvin Miller - Last Filed: 05/09/18 07:22> - Anesthetic History Anesthesia Complications: reports: No previous complications - Medical History Cardiovascular: reports: Hypertension Pulmonary: reports: None Gastrointestinal: reports: GERD, Colon polyps, Diverticulitis, Other (adenocarcinoma acending colon) Urinary: reports: Other (adenocarcinoma acending colon) Neuro: reports: None Musculoskeletal: reports: Osteoarthritis, Chronic back pain Smoking Status: Never smoker - Surgical History General: Colonoscopy Gynecologic: Hysterectomy <Mervat Stevenson - Last Filed: 05/09/18 07:39> Exam General: Alert Dental: Partials Upper Mouth Opening: Greater than 4 Fingerbreadths Mallampati classification: II Thyromental Distance: 4-6 cm <Mervat Stevenson - Last Filed: 05/09/18 07:39> Plan Anesthesia Type: General, MAC Consent for Procedure(s) Verified and Reviewed: Yes Code Status: Attempt Resuscitation ASA classification: 3-Severe systemic disease Is this case an emergency?: No <Mervat Stevenson - Last Filed: 05/09/18 07:39>
[2018-05-09] MEDS ORDERED: EPINEPHrine 1 MG/ML AMP ONE (07:47)
[2018-05-09] MEDS ORDERED: BUPIVACAINE 0.5% PF 30 ML VIAL ONE (07:47)
[2018-05-09] MEDS ORDERED: BUPIVACAINE 0.5% PF 30 ML VIAL SUBQ ONE ×2 (09:14)
--- NOTE | 2018-05-09 09:44 | OPERATIVE REPORT ---
Operative Report - General Procedure Date: 05/09/18 Planned Procedure: Portacath placement Pre-Op Diagnosis: Stage III colon cancer - chemotherapy indicated Procedure Performed: Portacath placement in the LEFT subclavian site Post Op Diagnosis: Same - Procedure Note Primary Surgeon: Yonatan Hernandez MD Anesthesia Provider: Mervat Stevenson CRNA Anesthesia Technique: Local (15 mL of half percent Marcaine), MAC IV Fluids (mL): 900 Estimated Blood Loss (mL): 5 Complications: None. - Other Other Information/Narrative: OPERATIVE DESCRIPTION/REPORT: After verbal and written informed consent was obtained detailing the risks of infection, bleeding requiring transfusion with its risks, nerve injury, and , and after I met with the patient confirming the surgery and the site of the surgery, the patient was brought to the operative suite and placed supine on the operating table. Great care was taken to avoid pressure points to prevent pressure necrosis or nerve injury. Monitoring devices were applied along with TEDs and pneumatic compressive stockings (to prevent DVT). The patient received preoperative antibiotics for surgical prophylaxis. Mervat Stevenson CRNA sedated and anesthetized the patient for the entire procedure. The patient was prepped and draped in the usual sterile manner. A "time in" then confirmed that the patient was identified with 3 identifiers (name, date and medical record number), the history and physical was in the chart, the signed consent confirming the procedure was in the chart, the patient was in the correct position, the aforementioned prophylactic measures were in place or given, we had the correct personnel and equipment to complete the procedure and that anesthesia, surgery and nursing were given an opportunity to express any concerns. With the agreement of everyone in the room, we proceeded with the operation. After the subclavian region was anesthetized using % marcaine and the patient placed in Trendelenberg position, an [employer] Smartport kit (Catalog #[id number], Lot #[id number]) was opened. The finder needle was inserted into the subclavian vein taking great care to place it just under the clavicle in order to minimize the risk of pneumothorax. When good venous blood return was obtained, the wire was placed through the needle and into the vein without difficulty. Cardiac irritability confirmed that the catheter was correctly going down towards the heart. Below and lateral to the needle insertion site, the area was anesthetized again using % marcaine and a transverse incision was made just large enough to accommodate the port. This incision was taken down to the fascia using sharp dissection and the area for the port was created using blunt downward dissection. Meticulous hemostasis was obtained using Bovie elect rocautery. A knife was inserted along the wire to widen the insertion site and this was further dilated using a Jonna. The port was flushed with heparinized saline and placed in the pouch and the catheter was then passed to the needle opening using the passer. The catheter was then measured against the patients anterior chest and cut so that the tip would lie 2 cm below the manubrial- sternal junction. The port was secured to the fascia using a 3-0 Prolene on the side of the opening of the port. The catheter was then wiped and wrapped with a heparinized soaked 4x4. The dilator and sheath were then carefully inserted over the wire and the dilator and wire withdrawn. The catheter was then inserted into the sheath and the sheath was broken away from the catheter leaving the catheter in place in the vein. An X-ray confirmed placement of the catheter tip in the right atrium/supracardiac vena cava without pneumothorax. Using a Hueber needle the port was accessed and good blood return as well as easy flush was noted. The subcutaneous tissue was approximated using 3-0 Vicryl and the skin incisions were approximated with 4-0 Monocryl in a subcuticular fashion. The skin prep was washed off and prepped with benzoin. Steristrips were applied. At this point a time out was performed that confirmed that all the counts were correct, the procedure that was performed, the blood loss, the IV fluids administered, and the patients condition. A dressing was placed on the wound. Having tolerated the procedure well, the patient was taken to short stay in good and stable condition. The patient was instructed that the Portacath could be used immediately. Iddiction disclaimer: This document was created in part using voice recognition technology. Because of the inherent limitations of the system ([employer]'s [employer] Dictate user manual states that the licensee understands that speech recognition is a statistical process and that recognition errors are inherent in the process), occasional same sounding word substitutions and grammatical errors do occur and persist despite proofreading. Please read this document for context.
[2018-05-09] MEDS ORDERED: HYDROcod/ACETAM 5/325 MG TABLET PO PRN (09:46)
[2018-05-09] MEDS ORDERED: HYDROmorphone 0.5 MG/0.5 ML SYRINGE IVP PRN (09:46)
[2018-05-09] MEDS ORDERED: ONDANSETRON 4 MG/2 ML VIAL IVP PRN (09:46)
[2018-05-09] MEDS ORDERED: MIDAZOLAM 2 MG/2 ML VIAL IVP ONE (10:00)
[2018-05-09] MEDS ORDERED: fentaNYL 100 MCG/2 ML VIAL IVP ONE (10:00)
[2018-05-09] MEDS ORDERED: KETAMINE 500 MG/10 ML VIAL IVP ONE (10:00)
[2018-05-09] MEDS ORDERED: LIDOCAINE-MPF 2% 5 ML VIAL IM ONE (10:00)
[2018-05-09] MEDS ORDERED: PROPOFOL 200 MG/20 ML VIAL IVP ONE (10:00)
[2018-05-09 10:16] VITALS: BP 120/60
--- NOTE | 2018-05-09 11:47 | XRAY Report ---
Reason: line placement Procedure Date: 05/09/2018 Accession Number: [id number] / [id number] Procedure: XR - Chest for Line Placement CPT Code: FULL RESULT: EXAM: CHEST RADIOGRAPHY 1 VIEW EXAM DATE: 05/09/2018. CLINICAL HISTORY: Port-A-Cath placement. COMPARISON: None. TECHNIQUE: Expiratory AP view at 0917. FINDINGS: Lungs/Pleura: The lungs are hypoinflated. The vasculature appears congested and there is increased interstitial opacity diffusely and alveolar opacity in the left upper lung. No pleural effusion or pneumothorax. Mediastinum: Mild cardiomegaly. Port-A-Cath placed on the left, the port projected over the left axilla, distal end of the catheter near the cavoatrial junction. Bones: Mild degenerative changes of the spine. Other: Tubes and lines overlie the chest and the upper abdomen. IMPRESSION: Port-A-Cath placed on the left, distal end of the catheter near the cavoatrial junction. Primary hypoinflation. Pulmonary vasculature appears distended, and there is increased interstitial opacity bilaterally, and alveolar opacity in the left upper lobe. This may be in part artifactual secondary to hypoinflation and atelectasis. Mild congestive heart failure/fluid overload is included in the differential. Alveolar opacity in the left upper lobe differential includes focal edema, pneumonia, and a mass. Recommend follow-up PA and lateral chest radiography with careful attention to good inspiration when the patient's clinical condition permits. RADIA
== END 2018-05-09 05:55 | disposition home or self-care (01) ==
LOC: SDS 05:54
PROVIDERS: ATTEND Surgery
PROC: 05H633Z Insertion of Infusion Device into Left Subclavian Vein, Percutaneous Approach (ICD-10-PCS; principal; 2018-05-09 07:30)
DX: C18.2 Malignant neoplasm of ascending colon (principal); I10 Essential (primary) hypertension; E11.9 Type 2 diabetes mellitus without complications; E78.5 Hyperlipidemia, unspecified; G47.30 Sleep apnea, unspecified
CPT/HCPCS: 36561; C1788; J0690; J7120; 71045

== ENCOUNTER 2018-10-10 07:22 | Outpatient (CLI) | payer MEDICARE, OTHER ==
--- NOTE | 2018-10-10 08:44 | Ultrasound Report ---
Reason: MASS OF LEFT KNEE JOINT, SWELLING OF LEFT LEG Procedure Date: 10/10/2018 Accession Number: [id number] / [id number] Procedure: US - Duplex Ext Veins Left CPT Code: FULL RESULT: EXAM: LEFT LOWER EXTREMITY VENOUS ULTRASOUND EXAM DATE: 10/10/2018 07:43 AM. CLINICAL HISTORY: Left leg swelling. Palpable lump posterior left knee. Pain. Possible DVT. History of colon cancer. COMPARISON: 12/15/2012. TECHNIQUE: Real-time sonographic vascular imaging was performed by the medical administrator through the lower extremity utilizing both color-flow and Doppler spectral analysis. Multiple bilingual sales representative static images were saved for review. FINDINGS: Common Femoral Vein (CFV): Normal. CFV-GSV Junction: Normal. Profunda Femoral Vein (PFV): Normal. Femoral Vein (FV) Prox: Normal. Femoral Vein (FV) Mid: Normal. Femoral Vein (FV) Dist: Normal. Popliteal Vein: Normal. Posterior Tibial Veins: Not visible due to technical factors. Peroneal Veins: Not visible due to technical factors. Contralateral Side CFV: Normal. Other: A complicated collection in the popliteal fossa with fluid and avascular solid elements overall measures 3.4 x 2.5 x 3.4 cm. This was not seen previously. There is subcutaneous edema of the calf. IMPRESSION: 1. No DVT in the visualized left lower extremity. Calf veins are not well seen due to technical factors. Subcutaneous edema noted. 2. A 3.4 x 2.5 x 3.5 cm complex collection in the popliteal fossa, potentially hematoma or clots within Cazares's cyst. RADIA
== END 2018-10-10 07:23 | disposition home or self-care (01) ==
LOC: DI 07:22
PROVIDERS: ATTEND Physician Assistant Medical
DX: M25.862 Other specified joint disorders, left knee (principal); M79.89 Other specified soft tissue disorders

== ENCOUNTER 2018-10-17 | Outpatient (CLI) | payer MEDICARE, OTHER | END 2018-10-17 23:59 | disposition home or self-care (01) | DX: L03.116 Cellulitis of left lower limb (principal) | CPT/HCPCS: 87070; 87075; 87147; 87186; 87205 ==

== ENCOUNTER 2018-11-13 10:44 | Outpatient (CLI) | payer MEDICARE, OTHER | END 2018-11-13 10:45 | disposition critical access hospital (66) | LOC: EMS 10:44 | PROVIDERS: ATTEND Surgery | DX: R11.2 Nausea with vomiting, unspecified (principal); R07.81 Pleurodynia | CPT/HCPCS: A0425; A0427 ==

== ENCOUNTER 2018-11-13 11:05 | Emergency (ER) | payer MEDICARE, OTHER ==
[2018-11-13] MEDS ORDERED: SODIUM CHLORIDE 0.9% 1,000 ML IV ONE (12:45)
[2018-11-13] MEDS ORDERED: ONDANSETRON 4 MG/2 ML VIAL IVP STA (12:45)
[2018-11-13] MEDS ORDERED: MORPHINE 2 MG/ML CARPUJECT IVP STA ×3 (12:45→16:52)
--- NOTE | 2018-11-13 12:52 | ED Physician Documentation ---
PD HPI NVD - Stated complaint Stated Complaint: N/V/D - Chief complaint Chief Complaint: Abd Pain - History obtained from History obtained from: Patient, Family - History of Present Illness Timing - onset: How many hours ago (7) Timing - duration: Hours (7) Timing - details: Abrupt onset Pain level max: 5 Pain level now: 4 Associated symptoms: Abdominal pain (crampy, diffuse), Chest pain (sore from vomiting). No: Fever, Hematemesis, Melena, Hematochezia, Dizzy, Near syncope / syncope, Loss of appetite, Weight loss, Dysuria, Hematuria Contributing factors: No: Sick contact, Bad food, Travel, Recent antibiotics, Alcohol use, Anticoagulated, Diabetes Improved by: Vomiting. No: Eating Worsened by: Eating. No: Moving, Breathing Similar symptoms before: Has not had sx before Recently seen: Not recently seen - Additonal information Additional information: history of colon cancer with resection in march 2018. stopped chemotherapy 1 month ago. This morning with nausea and vomiting. Had one small episode of diarrhea. No recent travel or illness. No recent antibiotics. Review of Systems Ten Systems: 10 systems reviewed and negative Constitutional: denies: Fever, Chills Throat: denies: Sore throat Cardiac: reports: Chest pain / pressure (states sore from vomiting) Respiratory: denies: Cough GI: reports: Nausea, Vomiting Musculoskeletal: denies: Neck pain, Back pain Neurologic: denies: Focal weakness, Numbness, Headache PD PAST MEDICAL HISTORY - Past Medical History Past Medical History: Yes Cardiovascular: Hypertension Respiratory: None Neuro: None Endocrine/Autoimmune: None GI: GERD, Colon polyps, Diverticulitis, Other HAND I CUTTER: None : Other HEENT: None Psych: None Musculoskeletal: Osteoarthritis, Chronic back pain Derm: None Other Past Medical History: colon cancer - Past Surgical History Past Surgical History: Yes General: Colonoscopy /HAND I CUTTER: Hysterectomy - Present Medications Home Medications: Ambulatory Orders Medication Instructions Recorded Confirmed raNITIdine [Zantac] 150 mg PO DAILY 12/04/15 11/13/18 Tolterodine [Detrol LA] 2 mg PO BID 01/22/16 11/13/18 Aspirin [Aspirin EC] 81 mg PO DAILY 03/22/18 11/13/18 Cholecalciferol (Vitamin D3) 1,000 unit PO DAILY 03/22/18 11/13/18 [Vitamin D3] Cyanocobalamin (Vitamin B-12) 2,500 mcg PO DAILY 03/22/18 11/13/18 [Vitamin B-12] Ibuprofen 800 mg PO Q8HR PRN 03/22/18 11/13/18 Mirtazapine 15 mg PO DAILY PM 03/22/18 11/13/18 Lidocaine/Prilocain 2.5% Cream 1 inch TOP PRN PRN 05/05/18 11/13/18 [Emla 2.5% Cream] Potassium Chloride 20 meq PO DAILY #60 tablet.er 06/20/18 11/13/18 - Allergies Allergies/Adverse Reactions: Allergies Allergy/AdvReac Type Severity Reaction Status Date / Time No Known Drug Allergies Allergy Verified 11/13/18 11:19 - Social History Does the pt smoke?: No Smoking Status: Never smoker Does the pt drink ETOH?: Yes Does the pt have substance abuse?: No - Immunizations Immunizations are current?: Yes PD ED PE NORMAL - Vitals Vital signs reviewed: Yes - General General: Alert and oriented X 3, No acute distress, Well developed/nourished - HEENT HEENT: PERRL, Moist mucous membranes - Neck Neck: Supple, no meningeal sign - Cardiac Cardiac: RRR, Strong equal pulses - Respiratory Respiratory: No respiratory distress, Clear bilaterally - Abdomen Abdomen: Soft, Non distended, Other (Mild diffuse tenderness to palpation without peritoneal signs.) - Derm Derm: Warm and dry - Extremities Extremities: No edema, No calf tenderness / cord - Neuro Neuro: Alert and oriented X 3 - Psych Psych: Normal mood, Normal affect Results - Vitals Vitals: Vital Signs - 24 hr 11/13/18 11/13/18 11/13/18 11:12 13:35 14:18 Temperature 36.8 C Heart Rate 72 62 65 Respiratory 13 13 16 Rate Blood Pressure 170/73 H 146/70 H 144/67 H O2 Saturation 96 96 98 11/13/18 16:39 Temperature Heart Rate 85 Respiratory 16 Rate Blood Pressure 150/73 H O2 Saturation 100 Oxygen O2 Source Room air - Labs Labs: Laboratory Tests 11/13/18 11/13/18 11/13/18 12:43 13:04 13:04 WBC 6.8 RBC 3.51 L Hgb 10.6 L Hct 34.2 L MCV 97.4 MCH 30.2 MCHC 31.0 L RDW 14.7 Plt Count 204 MPV 9.8 Neut # (Auto) 6.0 Lymph # (Auto) 0.5 L [place] # (Auto) 0.2 Eos # (Auto) 0.0 Baso # (Auto) 0.0 Absolute Nucleated RBC 0.00 Nucleated RBC % 0.0 Sodium 142 Potassium 3.6 Chloride 107 Carbon Dioxide 25 Anion Gap 10.0 BUN 15 Creatinine 0.8 Estimated GFR (MDRD) 83 L Glucose 155 H Calcium 9.4 Total Bilirubin 0.8 AST 24 ALT 15 Alkaline Phosphatase 57 Total Protein 6.3 L Albumin 3.5 Globulin 2.8 Albumin/Globulin Ratio 1.3 Lipase 20 L Carcinoembryonic Ag Urine Color YELLOW Urine Clarity CLEAR Urine pH 7.0 Ur Specific [place] 1.015 Urine Protein NEGATIVE Urine Glucose (UA) 100 H Urine Ketones NEGATIVE Urine Occult Blood NEGATIVE Urine Nitrite NEGATIVE Urine Bilirubin NEGATIVE Urine Urobilinogen 0.2 (NORMAL) Ur Leukocyte Esterase NEGATIVE Ur Microscopic Review NOT INDICATED Urine Culture Comments NOT INDICATED 11/13/18 13:04 WBC RBC Hgb Hct MCV MCH MCHC RDW Plt Count MPV Neut # (Auto) Lymph # (Auto) [place] # (Auto) Eos # (Auto) Baso # (Auto) Absolute Nucleated RBC Nucleated RBC % Sodium Potassium Chloride Carbon Dioxide Anion Gap BUN Creatinine Estimated GFR (MDRD) Glucose Calcium Total Bilirubin AST ALT Alkaline Phosphatase Total Protein Albumin Globulin Albumin/Globulin Ratio Lipase Carcinoembryonic Ag 0.9 Urine Color Urine Clarity Urine pH Ur Specific [place] Urine Protein Urine Glucose (UA) Urine Ketones Urine Occult Blood Urine Nitrite Urine Bilirubin Urine Urobilinogen Ur Leukocyte Esterase Ur Microscopic Review Urine Culture Comments - Rads (name of study) CT abd/pelvis Radiology: Prelim report reviewed, EMP read contemporaneously, See rad report (Marked pancreaticoduodenal biliary ductal dilation with question of obstruction at the distal CBD. Interval partial colectomy and development of ascites. ) PD MEDICAL DECISION MAKING - ED course Complexity details: reviewed results, re-evaluated patient, considered differential, d/w patient, d/w family, d/w store sales consultant ED course: 83-year-old female with abdominal pain and intractable vomiting. Unclear etiology. CT scan shows marked pancreaticoduodenal biliary ductal dilatation with question of obstruction at the distal CBD. She also has no ascites. Concern for cancer recurrence? ERCP is not available here. Discussed the case with Dr. Duarte, oncology who recommends transfer to [facility] in [place] and admit to the hospitalist for further care. At 1630, [facility] in [place] was called. 1730 D/w Dr. Day (hospitalist) accepts in transfer. COBRA forms completed. Patient transferred to [facility] in [place]. She is continuing to vomit in the emergency department. Received several doses of morphine and Zofran. This document was made in part using voice recognition software. While efforts are made to proofread this document, sound alike and grammatical errors may occur. Departure - Departure Disposition: 02 Transfer Acute Care Hosp Clinical Impression: Common bile duct dilatation Ascites Qualifiers: Ascites type: other type Qualified Code(s): R18.8 - Other ascites Vomiting Qualifiers: Vomiting type: unspecified Vomiting Intractability: intractable Nausea presence: with nausea Qualified Code(s): R11.2 - Nausea with vomiting, unspec ified Abdominal pain Qualifiers: Abdominal location: unspecified location Qualified Code(s): R10.9 - Unspecified abdominal pain Colon cancer Qualifiers: Colon location: unspecified part of colon Qualified Code(s): C18.9 - Malignant neoplasm of colon, unspecified Condition: Stable
[2018-11-13 12:54] LABS: BILIRUBIN,URINE NEGATIVE (NEGATIVE); GLUCOSE, URINE (UA) 100 mg/dL (NEGATIVE); KETONES,URINE (UA) NEGATIVE (NEGATIVE); LEUKOCYTE ESTERASE, URINE NEGATIVE (NEGATIVE); NITRITE,URINE NEGATIVE (NEGATIVE); OCCULT BLOOD,URINE NEGATIVE (NEGATIVE); PROTEIN,URINE NEGATIVE (NEGATIVE); UROBILINOGEN,URINE 0.2 (NORMAL) E.U./dL (NORMAL)
[2018-11-13 12:59] LABS: CLARITY,URINE CLEAR (CLEAR)
[2018-11-13 13:11] LABS: BASOPHILS % (AUTO) 0.3 %; HGB - HEMOGLOBIN 10.6 g/dL (12.0-16.0); LYMPHOCYTES # (AUTO) 0.5 10^3/uL (1.5-3.5); LYMPHOCYTES % (AUTO) 7.4 %; MEAN CORPUSCULAR HEMOGLOBIN 30.2 pg (27.0-31.0); MEAN CORPUSCULAR VOLUME 97.4 fL (81.0-99.0); MEAN PLATELET VOLUME 9.8 fL (7.9-10.8); MONOCYTES # (AUTO) 0.2 10^3/uL (0.0-1.0); MONOCYTES % (AUTO) 2.7 %; NEUTROPHILS % (AUTO) 89.2 %; PLT - PLATELET COUNT 204 10^3/uL (130-450); RED BLOOD COUNT 3.51 10^6/uL (4.20-5.40); RED CELL DISTRIBUTION WIDTH 14.7 % (12.0-15.0); WHITE BLOOD COUNT 6.8 x10^3/uL (4.8-10.8)
[2018-11-13 13:24] LABS: ALBUMIN 3.5 g/dL (3.2-5.5); ALBUMIN/GLOBULIN RATIO 1.3 (1.0-2.2); BILIRUBIN,TOTAL 0.8 mg/dL (0.2-1.0); CALCIUM 9.4 mg/dL (8.5-10.3); CREATININE 0.8 mg/dL (0.4-1.0); TOTAL PROTEIN 6.3 g/dL (6.7-8.2)
[2018-11-13] MEDS ORDERED: IOVERSOL 320 100 ML VIAL IVP ONE ×2 (14:24→16:43)
--- NOTE | 2018-11-13 15:21 | CT Report ---
Reason: abd pain, vomiting Procedure Date: 11/13/2018 Accession Number: [id number] / [id number] Procedure: CT - Abdomen/Pelvis W CPT Code: FULL RESULT: EXAM: CT ABDOMEN AND PELVIS WITH CONTRAST. EXAM DATE: 11/13/2018 02:48 PM. CLINICAL HISTORY: Abdominal pain, vomiting. History of adenocarcinoma of the ascending colon. COMPARISONS: ABDOMEN/PELVIS W/ 02/23/2018 11:10 AM. TECHNIQUE: Routine helical CT imaging was performed through the abdomen and pelvis. IV contrast: 90 mL Optiray 320. Enteric contrast: No. Reconstructions: Coronal and sagittal. In accordance with CT protocol optimization, one or more of the following dose reduction techniques were utilized for this exam: automated exposure control, adjustment of mA and/or KV based on patient size, or use of iterative reconstructive technique. FINDINGS: Lung Bases: Scant right lung base consolidation, minimal dependent changes on the left. Liver: There is intrahepatic biliary ductal dilation. Gallbladder/Bile Ducts: Gallbladder is distended. There is marked extrahepatic biliary ductal dilation. At the confluence of the dilated pancreatic and biliary duct is suggestion of obstruction near the sphincter see images 15 and 16 of coronal series 5 and correlate to image 36 and 37 of series 3. Spleen: Splenic calcification. Pancreas: Marked dilation of the pancreatic duct. Adrenal Glands: Normal. Kidneys: Bilateral hypodensities which are too small to characterize as well as a left renal cyst. No hydronephrosis. Peritoneal Cavity/Bowel: There has been interval partial colectomy and development of ascites with small ventral periumbilical hernia. The appendix is well visualized and normal. Pelvic Organs: Heterotopic calcifications are seen in the soft tissues near the right gluteus. Vasculature: No aneurysms or other significant abnormality. Bones: No significant abnormality. Other: None. IMPRESSION: Marked pancreaticoduodenal biliary ductal dilation with question of obstruction at the distal CBD. Interval partial colectomy and development of ascites. CRITICAL RESULT: The findings were discussed with Dr. Garcia on 11/13/2018 at 3:20 PM. ANASTASIYAA
[2018-11-13 18:55] VITALS: BP 135/70
== END 2018-11-13 19:16 | disposition short-term general hospital (02) ==
LOC: EDBD → EDUNIT# → ED 11:05
DX: K83.8 Other specified diseases of biliary tract (principal); R18.8 Other ascites; R10.84 Generalized abdominal pain; R11.2 Nausea with vomiting, unspecified; Z85.038 Personal history of other malignant neoplasm of large intestine; Z90.49 Acquired absence of other specified parts of digestive tract; K21.9 Gastro-esophageal reflux disease without esophagitis; I10 Essential (primary) hypertension; Z79.82 Long term (current) use of aspirin
CPT/HCPCS: 36415; 74177; 80053; 81003; 82378; 83690; 85025; 96361; 96374; 96375; 96376; 99284; 99285; Q9967; 81001; 87086

== ENCOUNTER 2018-11-13 19:16 | Outpatient (CLI) | payer MEDICARE, OTHER | END 2018-11-13 19:17 | disposition short-term general hospital (02) | LOC: EMS 19:16 | PROVIDERS: ATTEND Surgery | DX: R10.9 Unspecified abdominal pain (principal); R11.2 Nausea with vomiting, unspecified; R19.7 Diarrhea, unspecified | CPT/HCPCS: A0425; A0426 ==

== ENCOUNTER 2018-12-16 08:08 | Outpatient (CLI) | payer MEDICARE, OTHER ==
--- NOTE | 2018-12-16 09:42 | Ultrasound Report ---
Reason: LYMPHEDEMA, LEFT LEG Procedure Date: 12/16/2018 Accession Number: [id number] / [id number] Procedure: US - Duplex Ext Veins Left CPT Code: FULL RESULT: EXAM: LEFT LOWER EXTREMITY VENOUS ULTRASOUND EXAM DATE: 12/16/2018 09:09 AM. CLINICAL HISTORY: Left lower extremity lymphedema, rule out DVT. COMPARISON: DUPLEX EXT VEINS LEFT 10/10/2018 7:43 AM. TECHNIQUE: Real-time sonographic vascular imaging was performed by the dampproofer through the lower extremity utilizing both color-flow and Doppler spectral analysis. Multiple client service representative static images were saved for review. FINDINGS: Common Femoral Vein (CFV): Normal. CFV-GSV Junction: Normal. Profunda Femoral Vein (PFV): Normal. Femoral Vein (FV) Prox: Normal. Femoral Vein (FV) Mid: Normal. Femoral Vein (FV) Dist: Normal. Popliteal Vein: Normal. Posterior Tibial Veins: Normal. Peroneal Veins: Normal. Contralateral Side CFV: Normal. Other: There is limited evaluation of the calf veins secondary to edema. IMPRESSION: No left lower extremity DVT evident. RADIA
--- NOTE | 2018-12-16 13:03 | Ultrasound Report ---
Reason: LYMPHEDEMA, LEFT LEG Procedure Date: 12/16/2018 Accession Number: [id number] / [id number] Procedure: US - Ankle Brachial Index CPT Code: FULL RESULT: EXAM: BILATERAL ANKLE/BRACHIAL INDEX EXAM DATE: 12/16/2018 09:09 AM. CLINICAL HISTORY: LYMPHEDEMA, LEFT LEG. COMPARISON: None. TECHNIQUE: A blood pressure cuff and pulse volume recording Doppler ultrasound was used to evaluate the arterial pressures in the arms and ankle. No images were acquired. FINDINGS: Brachial pressure: Right brachial artery: 133 mmHg, index 1.00 Left brachial artery: 150 mmHg, index 1.00 Right ankle pressures: 150 mmHg, index 1.1 Left ankle pressures: 151 mmHg, index 1.2 IMPRESSION: 1. Right ankle/brachial index: 1.1. 2. Left ankle/brachial index: 1.2. ANKLE/BRACHIAL INDEX REFERENCE STANDARDS 1.0-1.4: Normal 0.90-0.99: Borderline < 0.9: Abnormal RADIA
== END 2018-12-16 08:09 | disposition home or self-care (01) ==
LOC: DI 08:08
PROVIDERS: ATTEND Family Medicine
DX: I89.0 Lymphedema, not elsewhere classified (principal)
CPT/HCPCS: 93922

== ENCOUNTER 2018-12-18 09:30 | Outpatient (CLI) | payer MEDICARE, OTHER ==
[2018-12-18 13:04] LABS: EOSINOPHILS # (AUTO) 0.2 10^3/uL (0.0-0.7); EOSINOPHILS % (AUTO) 4.2 %; HGB - HEMOGLOBIN 10.8 g/dL (12.0-16.0); LYMPHOCYTES # (AUTO) 1.3 10^3/uL (1.5-3.5); LYMPHOCYTES % (AUTO) 30.6 %; MEAN CORPUSCULAR HEMOGLOBIN 31.4 pg (27.0-31.0); MEAN CORPUSCULAR HGB CONC 31.8 g/dL (32.0-36.0); MEAN CORPUSCULAR VOLUME 98.8 fL (81.0-99.0); MEAN PLATELET VOLUME 10.3 fL (7.9-10.8); MONOCYTES # (AUTO) 0.4 10^3/uL (0.0-1.0); MONOCYTES % (AUTO) 9.3 %; NEUTROPHILS # (AUTO) 2.2 10^3/uL (1.5-6.6); NEUTROPHILS % (AUTO) 54.2 %; PLT - PLATELET COUNT 234 10^3/uL (130-450); RED BLOOD COUNT 3.44 10^6/uL (4.20-5.40); RED CELL DISTRIBUTION WIDTH 16.7 % (12.0-15.0); WHITE BLOOD COUNT 4.1 x10^3/uL (4.8-10.8)
[2018-12-18 13:30] LABS: ALBUMIN 3.5 g/dL (3.2-5.5); ALBUMIN/GLOBULIN RATIO 1.3 (1.0-2.2); BILIRUBIN,TOTAL 0.8 mg/dL (0.2-1.0); CALCIUM 9.7 mg/dL (8.5-10.3); CREATININE 0.9 mg/dL (0.4-1.0); TOTAL PROTEIN 6.2 g/dL (6.7-8.2)
== END 2018-12-18 09:31 | disposition home or self-care (01) ==
LOC: LAB.WCP 09:30
PROVIDERS: ATTEND Family Medicine
DX: D64.9 Anemia, unspecified (principal); C18.9 Malignant neoplasm of colon, unspecified; I89.0 Lymphedema, not elsewhere classified
CPT/HCPCS: 36415; 80053; 85025

== ENCOUNTER 2019-03-09 12:16 | Outpatient (CLI) | payer MEDICARE, OTHER ==
--- NOTE | 2019-03-12 10:19 | Mammography Report ---
Reason: SCREENING MAMMO Procedure Date: 03/09/2019 Accession Number: [id number] / [id number] Procedure: MGN - Screening Mammo Dig Bilat CPT Code: FULL RESULT: EXAM: Screening Mammo Dig Bilat DATE: 03/09/2019 1:03 PM CLINICAL HISTORY: Sister with breast cancer. Routine screening TECHNIQUE: (B) - Bilateral CC and MLO views were obtained. COMPARISON: 04/15/2017, 04/14/2016, 02/11/2015, 12/11/2013, 11/29/2012, 10/04/2011, 10/09/2010 and 08/21/2009 PARENCHYMAL PATTERN: (A) - The breasts demonstrate scattered fibroglandular densities bilaterally. FINDINGS: There is no significant interval change. There are no suspicious masses, calcifications, or areas of distortion. IMPRESSION: Negative examination. BI-RADS category 1. RECOMMENDATION: (ANNUAL) - Recommend routine annual screening mammography. BI-RADS CATEGORY: (1) - Negative. STANDARD QUALIFYING STATEMENTS: 1. This examination was not reviewed with the aid of Computer-Aided Detection (CAD). 2. A negative or benign imaging report should not preclude biopsy if clinically suspicious findings are present. 3. Dense breasts may obscure an underlying neoplasm. 4. This examination was reviewed without the aid of 3D breast imaging (tomosynthesis).
== END 2019-03-09 12:17 | disposition home or self-care (01) ==
LOC: DI.N 12:16
DX: Z12.31 Encounter for screening mammogram for malignant neoplasm of breast (principal); Z80.3 Family history of malignant neoplasm of breast
CPT/HCPCS: 77067

== ENCOUNTER 2020-01-08 07:28 | Outpatient (CLI) | payer MEDICARE, OTHER ==
--- NOTE | 2020-01-08 10:01 | MRI Report ---
PROCEDURE: Abdomen W/O INDICATIONS: PANCREATIC LESION CONTRAST: None. TECHNIQUE: Coronal ultra fast SE through the abdomen, axial 2-D spoiled GE in- and [id number], and breath-hold T2 FSE with fat saturation through the biliary system and pancreas. Oblique coronal and axial thin- slice ultra fast SE, radial thick-slab ultra fast SE centered on the extrahepatic bile ducts. COMPARISON: CT abdomen and pelvis with IV contrast 12/26/2019, 11/13/2018. FINDINGS: Image quality: Good. Pancreas and biliary system: The previously described bilobed cystic structure near the uncinate pro cess to the right of the aorta seen on the CT 12/26/2019 is no longer apparent. This is most consistent with a third portion duodenal diverticulum. There is a T2 hyperintense irregular structure to the le ft of the aorta, (701/4) which is more conspicuous on MRI also likely represents a duodenal diverticu lum in the fourth portion. The pancreatic duct remains dilated up to 8 mm, (701/5), [address] The pancreatic duct was a lso dilated on the remote CT from 2018. The duct tapers in the tail. The CBD is at the upper limits o f normal measuring 7 mm and also tapers distally. No intrahepatic biliary ductal dilatation. Gallblad portillo is not significantly dilated. No gallstones identified. Other solid organs: Liver is within normal limits. Erin lobe. The spleen is normal in size. No ad renal nodules. Both kidneys are normal in size. Renal collecting systems appear mildly prominent, un changed. Simple cyst at the superior poles of the kidneys. Nodes and vessels: No retroperitoneal or mesenteric adenopathy by size criteria. Aorta and inferior vena cava are normal in size. Bowel and peritoneum: A partial colectomy better seen on prior CT. Unenhanced bowel loops are normal in caliber. No free fluid. Lung bases: No basal pleural effusions. Heart size is normal. Bones and soft tissues: Lower abdominal wall midline hernia. Bone marrow is of normal overall signal. IMPRESSION: 1. Bilobed cystic structure near the uncinate process is no longer apparent. 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 -A follow-up CT with oral contrast may be helpful to confirm duodenal diverticulum. 2. Chronic pancreatic ductal dilatation. No filling defect identified. 3. CBD is at the upper limits of normal. No intrahepatic biliary ductal dilatation. 4. No ascites. Reviewed by: Mike Andrews MD on 01/08/2020 10:00 AM PDT Approved by: Mike Andrews MD on 01/08/2020 10:00 AM PDT Station ID: [id number]
== END 2020-01-08 07:29 | disposition home or self-care (01) ==
LOC: DI 07:28
PROVIDERS: ATTEND Family Medicine
DX: K57.10 Diverticulosis of small intestine without perforation or abscess without bleeding (principal); K86.89 Other specified diseases of pancreas
CPT/HCPCS: 74181

== ENCOUNTER 2020-04-10 13:33 | Outpatient (CLI) | payer MEDICARE, OTHER ==
--- NOTE | 2020-04-11 13:53 | Mammography Report ---
BILATERAL DIGITAL SCREENING MAMMOGRAM 3D/2D: 04/10/2020 CLINICAL: Routine screening. Comparison is made to exams dated: 03/09/2019 mammogram, 04/15/2017 mammogram, 04/14/2016 mammogram, 02/11/2015 mammogram, 12/11/2013 mammogram, and 11/29/2012 mammogram - [facility]. T he tissue of both breasts is predominantly fatty. No significant masses, calcifications, or other findings are seen in either breast. There has been no significant interval change. IMPRESSION: NEGATIVE There is no mammographic evidence of malignancy. A 1 year screening mammogram is recommended. This exam was interpreted at Station ID: [id number]. NOTE: For mammograms, a report in lay terms will be sent to the patient. Approximately 15% of breast malignancies will not be visualized mammographically. In the management of a palpable breast mass, a negative mammogram must not discourage biopsy of a clinically suspicious lesion. Electronically Signed By: Margarito Gupta M.D., jr/ellen:04/10/2020 15:04:38 ACR BI-RADS Category 1: Negative 3341F PARENCHYMAL PATTERN: (F) - The breast(s) demonstrate(s) diffuse fatty replacement. BI-RADS CATEGORY: (1) - 1 RECOMMENDATION: (ANNUAL) - Recommend routine annual screening mammography. [id number] 1 year screening LATERALITY: (B)
== END 2020-04-10 13:34 | disposition home or self-care (01) ==
LOC: DI 13:33
DX: Z12.31 Encounter for screening mammogram for malignant neoplasm of breast (principal)
CPT/HCPCS: 77063; 77067

== ENCOUNTER 2020-11-17 10:48 | Outpatient (CLI) | payer MEDICARE, OTHER ==
[2020-11-17 18:00] LABS: BASOPHILS % (AUTO) 0.7 %; EOSINOPHILS # (AUTO) 0.1 10^3/uL (0.0-0.7); EOSINOPHILS % (AUTO) 1.9 %; HCT - HEMATOCRIT 39.3 % (37.0-47.0); HGB - HEMOGLOBIN 12.8 g/dL (12.0-16.0); LYMPHOCYTES # (AUTO) 0.9 10^3/uL (1.5-3.5); LYMPHOCYTES % (AUTO) 20.3 %; MEAN CORPUSCULAR HEMOGLOBIN 32.3 pg (27.0-31.0); MEAN CORPUSCULAR HGB CONC 32.6 g/dL (32.0-36.0); MEAN CORPUSCULAR VOLUME 99.2 fL (81.0-99.0); MEAN PLATELET VOLUME 11.5 fL (7.9-10.8); MONOCYTES # (AUTO) 0.4 10^3/uL (0.0-1.0); MONOCYTES % (AUTO) 8.8 %; NEUTROPHILS # (AUTO) 2.8 10^3/uL (1.5-6.6); NEUTROPHILS % (AUTO) 67.6 %; PLT - PLATELET COUNT 189 10^3/uL (130-450); RED BLOOD COUNT 3.96 10^6/uL (4.20-5.40); RED CELL DISTRIBUTION WIDTH 14.1 % (12.0-15.0); WHITE BLOOD COUNT 4.2 x10^3/uL (4.8-10.8)
[2020-11-17 18:11] LABS: SLIDE REVIEW? Indicated
[2020-11-17 18:23] LABS: CREATININE,URINE 126.9 mg/dL; MICROALBUM/CREATININE RATIO,UR 4.7 ug/mg (<30.0); MICROALBUMIN,URINE 0.6 mg/dL (0-300.0)
[2020-11-17 18:26] LABS: ALBUMIN 4.1 g/dL (3.2-5.5); ALBUMIN/GLOBULIN RATIO 1.6 (1.0-2.2); ALKALINE PHOSPHATASE 46 IU/L (42-121); ALT ALANINE AMINOTRANSFERASE 14 IU/L (10-60); AMYLASE 59 U/L (28-100); AST ASPARTATE AMINOTRANSFERASE 25 IU/L (10-42); BILIRUBIN,TOTAL 0.8 mg/dL (0.2-1.0); BUN - BLOOD UREA NITROGEN 23 mg/dL (6-20); CALCIUM 9.9 mg/dL (8.5-10.3); CARBON DIOXIDE - CO2 28 mmol/L (21-32); CHLORIDE 96 mmol/L (101-111); CHOL/HDL RATIO 2.9 (<4.4); CHOLESTEROL 197 mg/dL; CREATININE 1.1 mg/dL (0.4-1.0); GFR - MDRD 57 (>89); GLUCOSE 101 mg/dL (70-100); HDL CHOLESTEROL 67 mg/dL; LDL CHOLESTEROL,CALCULATED 115 mg/dL; LDL/HDL RATIO 1.7 (<4.4); LIPASE 19 U/L (22-51); POTASSIUM 3.6 mmol/L (3.5-5.0); SODIUM 136 mmol/L (135-145); TOTAL PROTEIN 6.7 g/dL (6.7-8.2); TRIGLYCERIDES 77 mg/dL; VLDL CHOLESTEROL 15 mg/dL
[2020-11-17 18:31] LABS: THYROID STIMULATING HORMONE 2.37 uIU/mL (0.34-5.60)
[2020-11-17 19:34] LABS: PLATELET MORPHOLOGY 2+ GIANT PLATELETS (NORMAL); RBC MORPHOLOGY (MULTIPLE) NORMAL APPEARANCE (NORMAL)
[2020-11-17 19:35] LABS: PLATELET ESTIMATE, MANUAL NORMAL (130-450,000) (NORMAL)
[2020-11-17 21:26] LABS: ESTIMATED AVERAGE GLUCOSE 117 mg/dL (70-100); HEMOGLOBIN A1c% 5.7 % (4.27-6.07)
== END 2020-11-17 10:49 | disposition home or self-care (01) ==
LOC: LAB.N 10:48
PROVIDERS: ATTEND Internal Medicine
DX: E78.5 Hyperlipidemia, unspecified (principal); K86.9 Disease of pancreas, unspecified; C18.9 Malignant neoplasm of colon, unspecified; E11.9 Type 2 diabetes mellitus without complications; I89.0 Lymphedema, not elsewhere classified
CPT/HCPCS: 36415; 80053; 80061; 82043; 82150; 82378; 82570; 83036; 83690; 83721; 84443; 85025

== ENCOUNTER 2020-11-17 10:58 | Outpatient (CLI) | payer MEDICARE, OTHER ==
--- NOTE | 2020-11-17 12:46 | XRAY Report ---
PROCEDURE: Hips 2V BILAT INDICATIONS: R HIP PX TECHNIQUE: 2 views of the hip were acquired. COMPARISON: Prior right hip plain films 01/08/2016 reviewed. FINDINGS: Bones: No fractures or dislocations. No suspicious bony lesions. Mild osteoarthritic change. The vi sualized pelvic ring appears intact. Soft tissues: No suspicious soft tissue calcifications or masses. Multiple injection granulomata ov erlap the right hip area as was the case also in December 2015. IMPRESSION: Mild right hip joint osteoarthritis without definite progression from 2016. Multiple injection granul omata are incidentally noted over the posterior right hip area. These were previously present also in 2016. Reviewed by: Salo Fernch MD on 11/17/2020 12:45 PM PDT Approved by: Salo French MD on 11/17/2020 12:45 PM PDT Station ID: [id number]
== END 2020-11-17 10:59 | disposition home or self-care (01) ==
LOC: DI.N 10:58
PROVIDERS: ATTEND Internal Medicine
DX: M16.11 Unilateral primary osteoarthritis, right hip (principal); E78.5 Hyperlipidemia, unspecified; K86.9 Disease of pancreas, unspecified; C18.9 Malignant neoplasm of colon, unspecified; E11.9 Type 2 diabetes mellitus without complications; I89.0 Lymphedema, not elsewhere classified
CPT/HCPCS: 36415; 80053; 80061; 82043; 82150; 82378; 82570; 83036; 83690; 83721; 84443; 85025

== ENCOUNTER 2021-05-04 10:15 | Outpatient (CLI) | payer MEDICARE, OTHER ==
--- NOTE | 2021-05-05 14:03 | Mammography Report ---
BILATERAL DIGITAL SCREENING MAMMOGRAM 3D/2D: 05/04/2021 CLINICAL: Routine screening. Comparison is made to exams dated: 04/10/2020 mammogram, 03/09/2019 mammogram, 04/15/2017 mammogram, 04/14/2016 mammogram, 02/11/2015 mammogram, and 12/11/2013 mammogram - [facility]. The tissue of both breasts is predominantly fatty. No significant masses, calcifications, or other findings are seen in either breast. There has been no significant interval change. IMPRESSION: NEGATIVE There is no mammographic evidence of malignancy. A 1 year screening mammogram is recommended. This exam was interpreted at Station ID: [id number]. NOTE: For mammograms, a report in lay terms will be sent to the patient. Approximately 15% of breast malignancies will not be visualized mammographically. In the management of a palpable breast mass, a negative mammogram must not discourage biopsy of a clinically suspicious lesion. Electronically Signed By: Emmanuel Whitmore acr/penrad:05/04/2021 11:46:14 ACR BI-RADS Category 1: Negative 3341F PARENCHYMAL PATTERN: (F) - The breast(s) demonstrate(s) diffuse fatty replacement. BI-RADS CATEGORY: (1) - 1 RECOMMENDATION: (ANNUAL) - Recommend routine annual screening mammography. [id number] 1 year screening LATERALITY: (B)
== END 2021-05-04 10:16 | disposition home or self-care (01) ==
LOC: DI.N 10:15
PROVIDERS: ATTEND Internal Medicine
DX: Z12.31 Encounter for screening mammogram for malignant neoplasm of breast (principal)

== ENCOUNTER 2022-06-14 09:21 | Outpatient (CLI) | payer MEDICARE, OTHER ==
[2022-06-14 12:14] LABS: BASOPHILS % (AUTO) 0.8 %; EOSINOPHILS # (AUTO) 0.1 10^3/uL (0.0-0.7); EOSINOPHILS % (AUTO) 2.1 %; HCT - HEMATOCRIT 38.4 % (37.0-47.0); HGB - HEMOGLOBIN 13.1 g/dL (12.0-16.0); LYMPHOCYTES # (AUTO) 1.5 10^3/uL (1.5-3.5); LYMPHOCYTES % (AUTO) 31.4 %; MEAN CORPUSCULAR HEMOGLOBIN 32.7 pg (27.0-31.0); MEAN CORPUSCULAR HGB CONC 34.1 g/dL (32.0-36.0); MEAN CORPUSCULAR VOLUME 95.8 fL (81.0-99.0); MONOCYTES # (AUTO) 0.5 10^3/uL (0.0-1.0); MONOCYTES % (AUTO) 9.7 %; NEUTROPHILS # (AUTO) 2.6 10^3/uL (1.5-6.6); NEUTROPHILS % (AUTO) 55.4 %; PLT - PLATELET COUNT 252 10^3/uL (130-450); RED BLOOD COUNT 4.01 10^6/uL (4.20-5.40); RED CELL DISTRIBUTION WIDTH 13.6 % (12.0-15.0); WHITE BLOOD COUNT 4.8 x10^3/uL (4.8-10.8)
[2022-06-14 12:26] LABS: CREATININE,URINE 106.3 mg/dL; MICROALBUM/CREATININE RATIO,UR 10.3 ug/mg (<30.0); MICROALBUMIN,URINE 1.1 mg/dL (0-300.0)
[2022-06-14 12:49] LABS: ESTIMATED AVERAGE GLUCOSE 111 mg/dL (70-100); HEMOGLOBIN A1c% 5.5 % (4.27-6.07)
[2022-06-14 12:54] LABS: ALBUMIN/GLOBULIN RATIO 1.4 (1.0-2.2); ALKALINE PHOSPHATASE 47 IU/L (42-121); ALT ALANINE AMINOTRANSFERASE 14 IU/L (10-60); AST ASPARTATE AMINOTRANSFERASE 21 IU/L (10-42); BILIRUBIN,TOTAL 0.9 mg/dL (0.2-1.0); BUN - BLOOD UREA NITROGEN 16 mg/dL (6-20); CALCIUM 9.9 mg/dL (8.5-10.3); CARBON DIOXIDE - CO2 29 mmol/L (21-32); CHLORIDE 98 mmol/L (101-111); CHOL/HDL RATIO 3.1 (<4.4); CHOLESTEROL 196 mg/dL; CREATININE 0.9 mg/dL (0.4-1.0); GFR - MDRD 72 (>89); GLUCOSE 113 mg/dL (70-100); HDL CHOLESTEROL 63 mg/dL; LDL CHOLESTEROL,CALCULATED 117 mg/dL; LDL/HDL RATIO 1.9 (<4.4); POTASSIUM 3.5 mmol/L (3.5-5.0); SODIUM 135 mmol/L (135-145); TOTAL PROTEIN 6.8 g/dL (6.7-8.2); TRIGLYCERIDES 81 mg/dL; VLDL CHOLESTEROL 16 mg/dL
== END 2022-06-14 09:22 | disposition home or self-care (01) ==
LOC: LAB.N 09:21
PROVIDERS: ATTEND Internal Medicine
DX: E11.29 Type 2 diabetes mellitus with other diabetic kidney complication (principal); C18.2 Malignant neoplasm of ascending colon
CPT/HCPCS: 36415; 80053; 80061; 82043; 82378; 82570; 83036; 83721; 85025

== ENCOUNTER 2022-06-21 14:23 | Outpatient (CLI) | payer MEDICARE, OTHER ==
--- NOTE | 2022-06-22 11:41 | Mammography Report ---
BILATERAL DIGITAL SCREENING MAMMOGRAM 3D/2D: 06/21/2022 CLINICAL: Family history of breast cancer. Routine screening. Comparison is made to exams dated: 05/04/2021 mammogram, 04/10/2020 mammogram, 03/09/2019 mammogram, 04/15/2017 mammogram, 04/14/2016 mammogram, and 02/11/2015 mammogram - [facility]. Both breasts are almost entirely fatty (category a/<25% glandular tissue). There are benign calcifications in both breasts. There also are benign vascular calcifications in th e right breast. No significant masses, calcifications, or other findings are seen in either breast. There has been no significant interval change. IMPRESSION: BENIGN There is no mammographic evidence of malignancy. A 1 year screening mammogram is recommended. This exam was interpreted at Station ID: [id number]. NOTE: For mammograms, a report in lay terms will be sent to the patient. Approximately 15% of breast malignancies will not be visualized mammographically. In the management of a palpable breast mass, a negative mammogram must not discourage biopsy of a clinically suspicious lesion. Electronically Signed By: Emmanuel Whitmore M.D. acr/penrad:06/21/2022 15:43:17 ACR BI-RADS Category 2: Benign Finding(s) 3342F PARENCHYMAL PATTERN: (F) - The breast(s) demonstrate(s) diffuse fatty replacement. BI-RADS CATEGORY: (2) - 2 RECOMMENDATION: (ANNUAL) - Recommend routine annual screening mammography. [id number] 1 year screening LATERALITY: (B)
== END 2022-06-21 14:24 | disposition home or self-care (01) ==
LOC: DI.N 14:23
DX: Z12.31 Encounter for screening mammogram for malignant neoplasm of breast (principal); Z80.3 Family history of malignant neoplasm of breast

== ENCOUNTER 2023-02-22 20:20 | Outpatient (CLI) | payer MEDICARE, OTHER | END 2023-02-22 20:21 | disposition critical access hospital (66) | LOC: EMS 20:20 | DX: R42 Dizziness and giddiness (principal) | CPT/HCPCS: A0425; A0429 ==

== ENCOUNTER 2023-02-22 20:40 | Emergency (ER) | payer MEDICARE, OTHER ==
[2023-02-22 21:08] LABS: BASOPHILS % (AUTO) 0.6 %; EOSINOPHILS % (AUTO) 0.6 %; HCT - HEMATOCRIT 36.5 % (37.0-47.0); HGB - HEMOGLOBIN 12.4 g/dL (12.0-16.0); LYMPHOCYTES # (AUTO) 0.7 10^3/uL (1.5-3.5); MEAN CORPUSCULAR HEMOGLOBIN 31.8 pg (27.0-31.0); MEAN CORPUSCULAR VOLUME 93.6 fL (81.0-99.0); MEAN PLATELET VOLUME 8.9 fL (7.9-10.8); MONOCYTES # (AUTO) 0.5 10^3/uL (0.0-1.0); MONOCYTES % (AUTO) 9.3 %; NEUTROPHILS # (AUTO) 3.6 10^3/uL (1.5-6.6); NEUTROPHILS % (AUTO) 73.3 %; PLT - PLATELET COUNT 232 10^3/uL (130-450); RED CELL DISTRIBUTION WIDTH 13.4 % (12.0-15.0); WHITE BLOOD COUNT 4.9 x10^3/uL (4.8-10.8)
[2023-02-22 21:26] LABS: ALBUMIN 3.9 g/dL (3.2-5.5); ALBUMIN/GLOBULIN RATIO 1.6 (1.0-2.2); BILIRUBIN,TOTAL 0.6 mg/dL (0.2-1.0); CALCIUM 9.7 mg/dL (8.5-10.3); CREATININE 0.9 mg/dL (0.6-1.3); POTASSIUM 3.2 mmol/L (3.5-4.5); TOTAL PROTEIN 6.4 g/dL (6.4-8.9)
[2023-02-22 21:30] LABS: TROPONIN I HIGH SENSITIVITY 7.4 ng/L (2.3-14.8)
--- NOTE | 2023-02-22 21:36 | ED Physician Documentation ---
History of Present Illness - Stated complaint Stated Complaint: DIZZY/NEAR SYNCOPE - Chief complaint Chief Complaint: Cardiac - History obtained from History obtained from: Patient, Family - History of Present Illness Timing: Today Pain level max: 2 Pain level now: 2 - Additonal information Additional information: Patient is an 88-year-old female who presents to the emergency department stating that she was in the kitchen today, it was hot and she began to feel lightheaded. She felt like she was going to pass out. She laid down and the symptoms have resolved. EMS states that she was "orthostatic" on scene and that her blood pressure dropped by greater than 10 points on standing up. She was given IV fluids. Patient is currently asymptomatic. No fevers. No chills. No headache. No nausea or vomiting. No injury. She states that the only pain she has is in her right hip which is chronic and has been ongoing for several years. Review of Systems Constitutional: denies: Fever, Chills Eyes: denies: Photophobia Nose: denies: Rhinorrhea / runny nose, Congestion Cardiac: denies: Chest pain / pressure, Palpitations, Calf pain Respiratory: denies: Dyspnea, Cough GI: denies: Vomiting, Diarrhea Skin: denies: Rash Musculoskeletal: denies: Neck pain, Back pain Neurologic: denies: Headache, Head injury, LOC PD PAST MEDICAL HISTORY - Past Medical History Past Medical History: Yes Cardiovascular: Hypertension Respiratory: None Neuro: None Endocrine/Autoimmune: None GI: GERD, Colon polyps, Diverticulitis, Other BOLT LOADER: None : Other HEENT: None Psych: None Musculoskeletal: Osteoarthritis, Chronic back pain Derm: None - Past Surgical History Past Surgical History: Yes General: Colonoscopy /BOLT LOADER: Hysterectomy - Present Medications Home Medications: Ambulatory Orders Medication Instructions Recorded Confirmed raNITIdine [Zantac] 150 mg PO DAILY 12/04/15 02/12/20 Tolterodine [Detrol LA] 2 mg PO BID 01/22/16 02/12/20 Aspirin [Aspirin EC] 81 mg PO DAILY 03/22/18 02/12/20 Cholecalciferol (Vitamin D3) 1,000 unit PO DAILY 03/22/18 02/12/20 [Vitamin D3] Cyanocobalamin (Vitamin B-12) 2,500 mcg PO DAILY 03/22/18 02/12/20 [Vitamin B-12] Ibuprofen 800 mg PO Q8HR PRN 03/22/18 02/12/20 Mirtazapine 15 mg PO DAILY PM 03/22/18 02/12/20 Lidocaine/Prilocain 2.5% Cream 1 inch TOP PRN PRN 05/05/18 02/12/20 [Emla 2.5% Cream] Potassium Chloride 20 meq PO DAILY #60 tablet.er 06/20/18 02/12/20 - Allergies Allergies/Adverse Reactions: Allergies Allergy/AdvReac Type Severity Reaction Status Date / Time No Known Drug Allergies Allergy Verified 02/12/20 12:37 - Social History Does the pt smoke?: No Smoking Status: Never smoker Does the pt drink ETOH?: Yes Does the pt have substance abuse?: No - Immunizations Immunizations are current?: Yes - POLST Patient has POLST: No PD ED PE NORMAL - Vitals Vital signs reviewed: Yes - General General: Alert and oriented X 3, No acute distress - HEENT HEENT: Atraumatic (No scalp hematomas. No palpable skull fractures.), PERRL, Other (Dry lips and tongue) - Neck Neck: Supple, no meningeal sign, No bony TTP - Cardiac Cardiac: RRR, Strong equal pulses - Respiratory Respiratory: No respiratory distress, Clear bilaterally - Abdomen Abdomen: Soft, Non tender, Non distended - Back Back: No spinal TTP - Derm Derm: Warm and dry, No rash - Extremities Extremities: No edema, No calf tenderness / cord - Neuro Neuro: Alert and oriented X 3, dog food dough mixer 2-12 intact, No motor deficit, No sensory deficit, Normal speech Eye Opening: Spontaneous Motor: Obeys Commands Verbal: Oriented GCS Score: 15 - Psych Psych: Normal mood, Normal affect Results - Vitals Vitals: Vital Signs - 24 hr 02/22/23 02/22/23 02/22/23 20:45 21:31 22:30 Temperature 36.4 C L Heart Rate 80 70 77 Respiratory 16 18 18 Rate Blood Pressure 144/78 H 136/65 H 125/51 L O2 Saturation 100 98 98 02/22/23 02/23/23 23:47 00:04 Temperature Heart Rate 72 61 Respiratory 18 18 Rate Blood Pressure 126/56 L 129/51 L O2 Saturation 100 98 Oxygen O2 Source Room air - EKG (time done) 2121 EKG releavant findings:: EKG personally interpreted by author of this note. Relevant findings are: Rate: Rate (enter#) (72) Rhythm: NSR, Other (PVC) [place]: Anterior hemiblock (LAFB) Intervals: Normal PA QRS: Normal Ischemia: Normal ST segments - Labs Labs: Laboratory Tests 02/22/23 02/22/23 21:03 21:03 WBC 4.9 RBC 3.90 L Hgb 12.4 Hct 36.5 L MCV 93.6 MCH 31.8 H MCHC 34.0 RDW 13.4 Plt Count 232 MPV 8.9 Neut # (Auto) 3.6 Lymph # (Auto) 0.7 L [place] # (Auto) 0.5 Eos # (Auto) 0.0 Baso # (Auto) 0.0 Absolute Nucleated RBC 0.00 Nucleated RBC % 0.0 Sodium 129 L Potassium 3.2 L Chloride 94 L Carbon Dioxide 26 Anion Gap 9.0 BUN 15 Creatinine 0.9 Estimated GFR (MDRD) 72 L Glucose 111 H Calcium 9.7 Total Bilirubin 0.6 AST 18 ALT 9 L Alkaline Phosphatase 54 Troponin I High Sens 7.4 Total Protein 6.4 Albumin 3.9 Globulin 2.5 Albumin/Globulin Ratio 1.6 Lipase 50 PD Medical Decision Making - ED course Complexity details: reviewed results, re-evaluated patient, considered differential, d/w patient, d/w family ED course: Patient with near syncope today. Possible mild right lung base opacity, does not have any symptoms of fever or cough. Do not feel that this likely represents infection. No acute findings on EKG. Her symptoms fully resolved with IV fluids. She is on a diuretic and this may have led to her dehydration all along with the warm environment in the kitchen. She does not want to stay in the hospital for telemetry monitoring. No evidence of arrhythmias on telemetry. No palpitations. No chest pain. Patient counseled regarding signs and symptoms for which I believe and urgent re-evaluation would be necessary. Patient with good understanding of and agreement to plan and is comfortable going home at this time This document was made in part using voice recognition software. While efforts are made to proofread this document, sound alike and grammatical errors may occur. Patient also had mild hyponatremia, consistent with her diuresis. Departure - Departure Disposition: 01 Home, Self Care Clinical Impression: Dehydration, Hyponatremia, Near syncope Condition: Good Instructions: ED Dehydration, ED Near Syncope Unkn Follow-Up: Khari Beauleiu MD [Primary Care Provider] - Within 1 week Comments: Please make sure you are drinking plenty of fluids at home. You appear to be mildly dehydrated today and this likely contributed to your symptoms. You are on diuretics (water pills) so this will make you more prone to dehydration. Please return if you worsen. Forms: PCP List Discharge Date/Time: 02/23/23 00:19
[2023-02-22] MEDS ORDERED: SODIUM CHLORIDE 0.9% 1,000 ML IV STA (22:19)
--- NOTE | 2023-02-22 22:26 | XRAY Report ---
PROCEDURE: Chest 1 View X-Ray INDICATIONS: Chest pain TECHNIQUE: One view of the chest was acquired. COMPARISON: CT 02/05/2020 FINDINGS: Surgical changes and devices: None. Lungs and pleura: No dense consolidation or pleural effusion. Questionable mild opacity is seen in t he medial right lung base. Mediastinum: Normal heart size. Bones and chest wall: Degenerative changes are present. IMPRESSION: Possible mild medial right lung base opacity representing atelectasis or early airspace disease. Cons ider future imaging surveillance to assess for resolution. Limited portable chest study. Reviewed by: Elpidio Villagran MD on 02/22/2023 10:25 PM PDT Approved by: Elpidio Villagran MD on 02/22/2023 10:25 PM PDT Station ID: [id number]
[2023-02-23 00:15] VITALS: BP 129/51; O2SAT 98
== END 2023-02-23 00:19 | disposition home or self-care (01) ==
LOC: EDUNIT# → ED 20:40
DX: E87.1 Hypo-osmolality and hyponatremia (principal); E86.0 Dehydration; R55 Syncope and collapse; I10 Essential (primary) hypertension
CPT/HCPCS: 36415; 80053; 83690; 84484; 85025; 93005; 96360; 99284

== ENCOUNTER 2023-03-17 10:22 | Outpatient (CLI) | payer MEDICARE, OTHER ==
[2023-03-17 18:02] LABS: BASOPHILS % (AUTO) 1.1 %; EOSINOPHILS # (AUTO) 0.1 10^3/uL (0.0-0.7); EOSINOPHILS % (AUTO) 2.4 %; HCT - HEMATOCRIT 35.3 % (37.0-47.0); HGB - HEMOGLOBIN 12.3 g/dL (12.0-16.0); LYMPHOCYTES # (AUTO) 0.9 10^3/uL (1.5-3.5); LYMPHOCYTES % (AUTO) 23.8 %; MEAN CORPUSCULAR HEMOGLOBIN 32.2 pg (27.0-31.0); MEAN CORPUSCULAR HGB CONC 34.8 g/dL (32.0-36.0); MEAN CORPUSCULAR VOLUME 92.4 fL (81.0-99.0); MEAN PLATELET VOLUME 9.6 fL (7.9-10.8); MONOCYTES # (AUTO) 0.4 10^3/uL (0.0-1.0); MONOCYTES % (AUTO) 10.8 %; NEUTROPHILS # (AUTO) 2.3 10^3/uL (1.5-6.6); NEUTROPHILS % (AUTO) 61.1 %; PLT - PLATELET COUNT 267 10^3/uL (130-450); RED BLOOD COUNT 3.82 10^6/uL (4.20-5.40); RED CELL DISTRIBUTION WIDTH 13.4 % (12.0-15.0); WHITE BLOOD COUNT 3.8 x10^3/uL (4.8-10.8)
[2023-03-17 18:14] LABS: ALBUMIN 3.9 g/dL (3.2-5.5); ALBUMIN/GLOBULIN RATIO 1.5 (1.0-2.2); ALKALINE PHOSPHATASE 50 IU/L (42-121); ALT ALANINE AMINOTRANSFERASE 9 IU/L (10-60); AST ASPARTATE AMINOTRANSFERASE 18 IU/L (10-42); BILIRUBIN,TOTAL 0.9 mg/dL (0.2-1.0); BUN - BLOOD UREA NITROGEN 12 mg/dL (6-20); CALCIUM 9.8 mg/dL (8.5-10.3); CARBON DIOXIDE - CO2 30 mmol/L (21-32); CHLORIDE 94 mmol/L (101-111); CHOL/HDL RATIO 2.5 (<4.4); CHOLESTEROL 177 mg/dL; CREATININE 0.8 mg/dL (0.6-1.3); GFR - MDRD 82 (>89); GLUCOSE 105 mg/dL (74-104); HDL CHOLESTEROL 72 mg/dL; LDL CHOLESTEROL,CALCULATED 93 mg/dL; LDL/HDL RATIO 1.3 (<4.4); POTASSIUM 3.1 mmol/L (3.5-4.5); SODIUM 129 mmol/L (135-145); TOTAL PROTEIN 6.5 g/dL (6.4-8.9); TRIGLYCERIDES 61 mg/dL (48-352); VLDL CHOLESTEROL 12 mg/dL
[2023-03-17 18:28] LABS: CREATININE,URINE 67.9 mg/dL
[2023-03-17 18:40] LABS: MICROALBUMIN,URINE < 0.7 mg/dL
[2023-03-17 20:12] LABS: ESTIMATED AVERAGE GLUCOSE 111 mg/dL (70-100); HEMOGLOBIN A1c% 5.5 % (4.27-6.07)
== END 2023-03-17 10:23 | disposition home or self-care (01) ==
LOC: LAB.N 10:22
PROVIDERS: ATTEND Internal Medicine
DX: C18.2 Malignant neoplasm of ascending colon (principal); E78.5 Hyperlipidemia, unspecified; E11.29 Type 2 diabetes mellitus with other diabetic kidney complication
CPT/HCPCS: 36415; 80053; 80061; 82043; 82378; 82570; 83036; 83721; 85025

== ENCOUNTER 2023-04-18 14:55 | Outpatient (CLI) | payer MEDICARE, OTHER ==
--- NOTE | 2023-04-18 16:23 | XRAY Report ---
PROCEDURE: Hips 2V BILAT INDICATIONS: BILATERAL HIP ARTHRITIS TECHNIQUE: 2 views of the hips were acquired. COMPARISON: None. FINDINGS: Bones: No fractures or dislocations. No suspicious bony lesions. Bilateral nonuniform joint space narrowing with osteophytic lipping of the acetabulum. Soft tissues: No suspicious soft tissue calcifications or masses. Venous calcifications project ov er the right hip. IMPRESSION: Mild bilateral hip osteoarthritis. Kellgren-Rashid scale of osteoarthritis: 2. Reviewed by: Jamel Jj on 04/18/2023 4:22 PM PST Approved by: Jamel Jj on 04/18/2023 4:22 PM PST Station ID: [id number]
== END 2023-04-18 14:56 | disposition home or self-care (01) ==
LOC: DI 14:55
PROVIDERS: ATTEND Internal Medicine
DX: M16.0 Bilateral primary osteoarthritis of hip (principal)

== ENCOUNTER 2023-11-09 11:27 | Outpatient (CLI) | payer MEDICARE, OTHER ==
[2023-11-09 17:47] LABS: BASOPHILS % (AUTO) 0.9 %; EOSINOPHILS # (AUTO) 0.2 10^3/uL (0.0-0.7); EOSINOPHILS % (AUTO) 4.8 %; HCT - HEMATOCRIT 34.8 % (37.0-47.0); HGB - HEMOGLOBIN 11.5 g/dL (12.0-16.0); LYMPHOCYTES % (AUTO) 23.2 %; MEAN CORPUSCULAR HEMOGLOBIN 32.2 pg (27.0-31.0); MEAN CORPUSCULAR VOLUME 97.5 fL (81.0-99.0); MEAN PLATELET VOLUME 9.3 fL (7.9-10.8); MONOCYTES # (AUTO) 0.5 10^3/uL (0.0-1.0); MONOCYTES % (AUTO) 12.3 %; NEUTROPHILS # (AUTO) 2.5 10^3/uL (1.5-6.6); NEUTROPHILS % (AUTO) 57.9 %; PLT - PLATELET COUNT 296 10^3/uL (130-450); RED BLOOD COUNT 3.57 10^6/uL (4.20-5.40); WHITE BLOOD COUNT 4.4 x10^3/uL (4.8-10.8)
[2023-11-09 18:10] LABS: ALBUMIN 3.8 g/dL (3.2-5.5); ALBUMIN/GLOBULIN RATIO 1.4 (1.0-2.2); BILIRUBIN,TOTAL 0.6 mg/dL (0.2-1.0); CALCIUM 9.9 mg/dL (8.5-10.3); CREATININE 1.1 mg/dL (0.6-1.3); POTASSIUM 3.1 mmol/L (3.5-4.5); TOTAL PROTEIN 6.5 g/dL (6.4-8.9)
[2023-11-09 18:20] LABS: THYROID STIMULATING HORMONE 2.53 uIU/mL (0.34-5.60)
[2023-11-09 20:34] LABS: ESTIMATED AVERAGE GLUCOSE 103 mg/dL (70-100); HEMOGLOBIN A1c% 5.2 % (4.27-6.07)
== END 2023-11-09 11:28 | disposition home or self-care (01) ==
LOC: LAB.N 11:27
PROVIDERS: ATTEND Internal Medicine
DX: C18.2 Malignant neoplasm of ascending colon (principal); E11.29 Type 2 diabetes mellitus with other diabetic kidney complication; R63.4 Abnormal weight loss
CPT/HCPCS: 36415; 80053; 82378; 83036; 84443; 85025